=== PATIENT | male | born 1940 | race Caucasian/White ===

== ENCOUNTER 2021-06-20 13:52 | Outpatient (CLI) | payer MEDICARE, OTHER, SELFPAY ==
--- NOTE | ~2021-06-20 | XR_ITS ---
EXAMINATION: XR shoulder LT min 2V DATE: 06/20/2021 14:08 INDICATION: Left shoulder pain. TECHNIQUE: 4 views of left shoulder were obtained. COMPARISON: None. FINDINGS: Bone alignment is normal. No fracture. There is mild osteoarthritis of glenohumeral joint a nd acromioclavicular joint. There is a small calcification in the area of the rotator cuff. IMPRESSION: 1. Mild polyarticular osteoarthritis. 2. Mild calcific tendinitis of the rotator cuff. Reviewed, dictated and finalized at location A.
== END 2021-06-20 13:53 | disposition home or self-care (01) ==
PROVIDERS: PCP Family Medicine; Visit Provider Nurse Practitioner Family
DX: M19.012 Primary osteoarthritis, left shoulder (principal); M75.32 Calcific tendinitis of left shoulder
CPT/HCPCS: 73030

== ENCOUNTER → 2021-06-28 14:01 | Outpatient (CLI) | payer MEDICARE, OTHER, SELFPAY ==
--- NOTE | ~2021-06-28 | CT_ITS ---
EXAMINATION: CT brain wo con DATE: 06/28/2021 14:30 INDICATION: Headache. Head injury. TECHNIQUE: Computed tomography (CT) of the head was performed without intravenous contrast. The mA wa s adjusted according to patient size. Iterative reconstruction technique was employed. The dose-lengt h product was 674.51 mGy-cm. COMPARISON: Head CT 05/31/2017 FINDINGS: There are scattered areas of low attenuation in the cerebral white matter. There is no intr acranial hemorrhage, acute infarction, or abnormal intracranial mass lesion. The ventricles are obed l in size. There are likely changes of ocular lens replacement surgeries. The paranasal sinuses are c lear. The mastoid air cells are normal. IMPRESSION: 1. Stable moderate nonspecific cerebral white matter disease, which likely represents chronic small v essel ischemic disease. Reviewed, dictated and finalized at location A. IMPRESSION: 1. Stable moderate nonspecific cerebral white matter disease, which likely repr esents chronic small vessel ischemic disease.
== END ==
PROVIDERS: PCP Family Medicine; Visit Provider Nurse Practitioner Family
DX: S00.93XA Contusion of unspecified part of head, initial encounter (principal); R51.9 Headache, unspecified; R42 Dizziness and giddiness; X58.XXXA Exposure to other specified factors, initial encounter; R93.0 Abnormal findings on diagnostic imaging of skull and head, not elsewhere classified
CPT/HCPCS: 70450

== ENCOUNTER 2021-12-24 12:34 | Outpatient (CLI) | payer MEDICARE, OTHER, SELFPAY ==
--- NOTE | 2021-12-24 12:41 | ECHO_ITS ---
Patient Info Name: Matt Tavera Age: 81 years : 1940 Gender: Male Ht: 69 in Wt: 207 lbs BSA: 2.16 m2 HR: 93 bpm BP: 155 / 87 mmHg Technical Quality: Fair Exam Date: 12/24/2021 1:04 PM Exam Location: [facility] Pulmonary Patient Status: Outpatient Admit Date: 12/24/2021 Staff Ordering Physician: Alec Renteria DO Mill Dresser: Gena Flores RDCS Attending Provider: Alec Renteria DO Referring Physician: Dexter TELLO; Exam Type: CA echo doppler color flow Study Info Indications R07.89 - Other chest pain Complete two-dimensional, color flow and Doppler transthoracic echocardiogram is performed. Summary 1. Complete two-dimensional, color flow and Doppler transthoracic echocardiogram is performed. 2. Left ventricular chamber dimension is normal. 3. Left ventricular systolic function is normal, estimated at 60-65%. 4. The left ventricular diastolic function is grade I diastolic dysfunction. 5. E/e' 10 is mildly elevated. 6. No pulmonary hypertension, estimated pulmonary arterial systolic pressure is 32 mmHg. Left Ventricle E/e' 10 is mildly elevated. Left ventricular chamber dimension is normal. Left ventricular systolic function is normal, estimated at 60-65%. The left ventricular diastolic function is grade I diastolic dysfunction. Right Ventricle Right ventricular systolic function is normal and with normal TAPSE 2.2 cm. Right ventricular chamber dimension is normal. Left Atria Left atrial chamber dimension is normal. Right Atria Right atrial chamber dimension is normal. Aortic Valve The aortic valve is trileaflet. There is no aortic valve stenosis. There is no aortic valve regurgitation. Pulmonic Valve There is no pulmonic regurgitation. Mitral Valve There is no mitral valve stenosis. There is no mitral valve regurgitation. Tricuspid Valve There is no tricuspid valve regurgitation. No pulmonary hypertension, estimated pulmonary arterial systolic pressure is 32 mmHg. Pericardium/Pleural There is no pericardial effusion. Inferior Vena Cava Normal inferior vena cava with >50% collapse upon inspiration consistent with normal right atrial pressure, 5 mmHg. Aorta The aortic root size at the sinus of Valsalva is normal. Left Ventricular Outflow Tract Name Value Normal LVOT 2D LVOT Diameter 2.1 cm LVOT Doppler LVOT Peak Gradient 5 mmHg LVOT Mean Gradient 3 mmHg LVOT VTI 23 cm LVOT VTI/AV VTI Ratio 0.9 LVOT Stroke Volume 76 ml LVOT CO 16.6 l/min LVOT CI 7.7 l/min/m2 Pulmonic Valve Name Value Normal PV Doppler PV Peak Gradient 3 mmHg Mitral Valve
== END 2021-12-24 12:35 | disposition home or self-care (01) ==
LOC: ANHCARD 12:36
PROVIDERS: PCP Family Medicine; Visit Provider Internal Medicine Cardiovascular Disease
DX: R07.9 Chest pain, unspecified (principal)
CPT/HCPCS: 93306

== ENCOUNTER 2021-12-30 12:43 | Outpatient (CLI) | payer MEDICARE, OTHER, SELFPAY ==
--- NOTE | ~2021-12-30 | US_ITS ---
EXAMINATION: US carotid duplex BI DATE: 12/30/2021 13:40 INDICATION: Carotid occlusions TECHNIQUE: Grayscale, color Doppler, and pulsed Doppler images of the cervical carotid arteries were obtained. The degree of vessel stenosis is placed in one of the following categories: normal, <50%, 5 0-69%, >=70% but less than near-occlusion, near-occlusion, or total occlusion. Note that percent sten osis relative to normal distal artery lumen diameter is indirectly measured from velocity measurement s as described by Bradley, et al. Radiology 2003; 229:340-346. Notes: Normal: Peak systolic velocity <125 centimeters/sec and no plaque <50%. Peak systolic velocity <125 ( EDV <40; ICA/CCA PSV ratio <2.0; used these factors only a tandem lesions or low cardiac output or co ntralateral disease) 50-69 %: PSV 125-230 (EDV 40-100; ratio 2-4) >= 70% but less than near occlusion: PSV greater than 230 (EDV > 100; ratio> 4.0) Near Occlusion: PSV that is variable; markedly narrowed lumen Occlusion: Absent flow on color/spectral Doppler and no lumen on smith scale. COMPARISON: Ultrasound dated 06/07/2017. FINDINGS: RIGHT: The right common carotid artery (CCA) peak systolic velocity (PSV) is 90 cm/s. The right internal car otid artery (ICA) PSV is 161 cm/s. The right ICA end-diastolic velocity (EDV) is 28 cm/s. The right I CA/CCA PSV ratio is 1.8. The external carotid artery (ECA) PSV is 29 cm/s. There is antegrade flow in the right vertebral artery. LEFT: The left CCA PSV is 110 cm/s. The left ICA PSV is 198 cm/s. The left ICA EDV is 43 cm/s. The left ICA /CCA PSV ratio is 1.8. The ECA PSV is 123 cm/s. There is antegrade flow in the left vertebral artery . IMPRESSION: 1. 50-69% stenosis in the right internal carotid artery by sonographic criteria. 2. 50-69% stenosis in the left internal carotid artery by sonographic criteria. Reviewed, dictated and finalized at location A. IMPRESSION: 1. 50-69% stenosis in the right internal carotid artery by sonographic criteria . 2. 50-69% stenosis in the left internal carotid artery by sonographic criteria.
[2021-12-30 14:32] LABS: CRP 1.2 mg/dL (<1.0)
[2021-12-30 15:02] LABS: Erythrocyte Sedimentation Rate 42 mm/hr (0-20)
== END 2021-12-30 12:44 | disposition home or self-care (01) ==
PROVIDERS: PCP Family Medicine; Visit Provider Internal Medicine Cardiovascular Disease
DX: G44.309 Post-traumatic headache, unspecified, not intractable (principal); S09.90XS Unspecified injury of head, sequela; I65.23 Occlusion and stenosis of bilateral carotid arteries; X58.XXXS Exposure to other specified factors, sequela
CPT/HCPCS: 36415; 85652; 86140; 93880

== ENCOUNTER 2022-01-26 13:49 | Outpatient (CLI) | payer MEDICARE, OTHER, SELFPAY ==
--- NOTE | ~2022-01-26 | MR_ITS ---
EXAMINATION: MR brain/brain stem wo/w con DATE: 01/26/2022 14:45 INDICATION: Headache. TECHNIQUE: Magnetic resonance imaging (MRI) of the brain and brainstem was performed without and with 18 mL MultiHance intravenous contrast. COMPARISON: Brain MRI 04/04/2005 FINDINGS: There are scattered areas of nonspecific increased T2-weighted signal intensity in the cere bral white matter. Again seen is increased T2-weighted signal intensity in right middle cerebellar pe duncle. There is no acute ischemic infarct or intracranial hemorrhage. The ventricles are normal in s ize. There are likely changes of ocular lens replacement surgeries. The paranasal sinuses are clear. The mastoid air cells are normal. IMPRESSION: 1. Worsened moderate nonspecific cerebral white matter disease and stable disease of the right middle cerebellar peduncle, which likely represents chronic small vessel ischemic disease. Reviewed, dictated and finalized at location A. TECHNICIAN IMPRESSION: 1. Worsened moderate nonspecific cerebral white matter disease and stable disea se of the right middle cerebellar peduncle, which likely represents chronic sma ll vessel ischemic disease.
--- NOTE | ~2022-01-26 | MR_ITS ---
EXAMINATION: MRA brain wo con DATE: 01/26/2022 14:45 INDICATION: Headache. TECHNIQUE: Magnetic resonance angiography (MRA) of the brain was performed without intravenous contra st with T1-weighted SPGR by the 3D [id number] technique. Maximum intensity projection 3D-reconstr uctions were obtained. COMPARISON: Brain MRI 01/26/2022 FINDINGS: The vertebral arteries are codominant. There is no significant stenosis of basilar artery or the post erior cerebral arteries. There is no significant stenosis of the intracranial internal carotid arteri es or anterior or middle cerebral arteries. Anterior communicating artery is normal. The posterior co mmunicating arteries are normal. There is no aneurysm. IMPRESSION: 1. No aneurysm or significant intracranial arterial stenosis. Reviewed, dictated and finalized at location A. RD MAKER
== END 2022-01-26 13:50 | disposition home or self-care (01) ==
PROVIDERS: PCP Family Medicine
DX: I63.9 Cerebral infarction, unspecified (principal); R93.0 Abnormal findings on diagnostic imaging of skull and head, not elsewhere classified
CPT/HCPCS: 70544; 70553; A9577

== ENCOUNTER 2022-06-01 13:40 | Outpatient (CLI) | payer MEDICARE, OTHER, SELFPAY ==
--- NOTE | ~2022-06-01 | XR_ITS ---
XR chest 2V 06/01/2022 14:02 Indication: Dyspnea with exertion Procedure: 2 view chest Comparison: Comparison to multiple prior studies sequentially, with oldest reviewed study dated 07/2015. Findings: There are chronic linear infiltrates of the lower lungs bilaterally, slightly increased com pared with prior study. No significant effusion. No edema. No pneumothorax. No acute osseous abnormal ity. There is atherosclerosis of the aorta. Impression: 1: Progression of linear bibasilar infiltrates which most likely represents atelectasis/scarring. Reviewed, dictated and finalized at location A. Impression: 1: Progression of linear bibasilar infiltrates which most likely represents ate lectasis/scarring.
== END 2022-06-01 13:41 | disposition home or self-care (01) ==
PROVIDERS: PCP Family Medicine; Visit Provider Nurse Practitioner Family
DX: R06.09 Other forms of dyspnea (principal)
CPT/HCPCS: 71046

== ENCOUNTER 2022-08-14 12:34 | Emergency (ER) | payer MEDICARE, OTHER, SELFPAY ==
--- NOTE | 2022-08-14 12:41 | ED.EXTPRO ---
HPI - Extremity Problem General Chief complaint: Extremity Problem,Nontraumatic Stated complaint: L LEG PAIN/SWELLING Source: patient and RN notes reviewed History of Present Illness HPI Narrative: 82 yo M presents to urgent care with complaints of left calf pain and swelling that started Sunday. Pt states the pain is now extending to his posterior thigh. Pt states this felt like a rubber band snapped him in the calf when he was lying in bed on Sunday. Denies any injury. Denies any fevers, chills, chest pain, or SOB. Related Data Home Medications Medication Instructions Recorded Confirmed aspirin 81 mg tablet,delayed 81 mg PO DAILY 07/16/19 08/14/22 release (Aspir-) cholecalciferol (vitamin D3) 50 50 mcg PO DAILY 12/09/21 08/14/22 mcg (2,000 unit) capsule multivitamin (Daily Multi-Vitamin 1 tablet PO DAILY 12/09/21 08/14/22 tablet) cephalexin 500 mg capsule 500 mg PO DIRECTED 08/14/22 08/14/22 Allergies Allergy/AdvReac Type Severity Reaction Status Date / Time No Known Allergies Allergy Verified 08/14/22 13:02 Review of Systems Review of Systems: Pertinent positives and pertinent negatives per HPI. [facility] Past Medical History Medical History Bilateral carotid artery stenosis Chronic obstructive pulmonary disease CKD (chronic kidney disease) GERD (gastroesophageal reflux disease) Headaches due to old head injury History of basal cell carcinoma (BCC) History of prostate cancer HLD (hyperlipidemia) HTN (hypertension) IFG (impaired fasting glucose) Insomnia RLS (restless legs syndrome) Family History Family History Father Family history of lung cancer Other Hypertension Malignant neoplasm of prostate Social History Social History Smoking packs per day: 1.5 Smoking cigarettes per day: 30.0 Years smoked: 50 Smoking pack-years: 75.00 Smoking status: Former smoker Tobacco type: cigarettes Second hand tobacco smoke exposure: No Smoking end date: 03/19/10 Alcohol intake: never Substance use: never Substance use type: does not use Living arrangements: with family Occupation/Education: retired Gender identity (if verbalized by the patient): Male Sexual Orientation (if Verbalized by the Patient): Straight or Heterosexual Comments At the time of my signature, I reviewed and agree with the nursing past medical, surgical, social, and family history. There is no relevant family history pertinent to the patient complaint. Exam Narrative: GENERAL: This is a well-nourished, well-developed patient, in no apparent distress. HEAD: normocephalic, atraumatic. EYES: Sclera clear/white. Vision is grossly intact. EARS: External ears normal, auditory canals clear and without drainage. Hearing grossly intact. NOSE: External nose normal with no obvious nasal discharge, nares without redness, no rhinorrhea. THROAT: Mucous membranes moist, posterior pharynx clear. NECK: Neck supple, non-tender without lymphadenopathy, masses or thyromegaly. CARDIOVASCULAR: Regular rate and rhythm without murmurs, gallops, or rubs. RESPIRATORY: Clear to auscultation. Breath sounds equal bilaterally. No wheezes, rales, or rhonchi. SKIN: warm, intact with no suspicious lesions or rash, good texture and turgor. NEURO: awake, alert, and oriented to person, place and time. There were no obvious focal neurologic abnormalities. EXTREMITIES: Left posterior calf swelling and tenderness that extends to posterior upper thigh. BACK: Nontender without deformity or crepitus. No flank tenderness. Course Course Level of Care: Express Care Visit Vital Signs Vital signs: Vital Signs Temperature 98.1 F 08/14/22 12:45 Pulse Rate 95 08/14/22 12:45 Respiratory Rate 16 08/14/22 12:45 Blood Pressure 116/78 08/14/22 12:45 Puls
[2022-08-14 12:45] VITALS: BP 116/78; PULSE 95; RESP 16; TEMP 36.7; O2SAT 96
--- NOTE | 2022-08-14 13:21 | PC.NURSE ---
1255- exchange called and requested a call back from Dr Jamshid Finn. 1305- 2nd call to exchange 1321- LESTER Mccloud talking to Dr Finn at present.
== END 2022-08-14 13:27 | disposition home or self-care (01) ==
PROVIDERS: Emergency Provider Nurse Practitioner Family; PCP Family Medicine
DX: R22.42 Localized swelling, mass and lump, left lower limb (principal); Z87.891 Personal history of nicotine dependence; I65.23 Occlusion and stenosis of bilateral carotid arteries; I12.9 Hypertensive chronic kidney disease with stage 1 through stage 4 chronic kidney disease, or unspecified chronic kidney disease; N18.9 Chronic kidney disease, unspecified; J44.9 Chronic obstructive pulmonary disease, unspecified; E78.5 Hyperlipidemia, unspecified; R73.01 Impaired fasting glucose; G25.81 Restless legs syndrome; K21.9 Gastro-esophageal reflux disease without esophagitis; Z85.828 Personal history of other malignant neoplasm of skin; Z85.46 Personal history of malignant neoplasm of prostate
CPT/HCPCS: 99213; G0463

== ENCOUNTER 2022-08-15 13:36 | Outpatient (CLI) | payer MEDICARE, SELFPAY ==
--- NOTE | ~2022-08-15 | US_ITS ---
EXAMINATION: US venous doppler [facility] DATE: 08/15/2022 14:13 INDICATION: Left lower limb swelling and pain. TECHNIQUE: Grayscale ultrasound images without and with compression and Doppler ultrasound images of the left lower extremity veins were obtained. COMPARISON: None. FINDINGS: The visualized portions of left common femoral vein, profunda (deep) femoral vein, femoral vein, popl iteal vein, peroneal veins, posterior tibial veins, and greater saphenous vein outflow are patent. Th ere is a 2.5 x 4.1 x 0.9 cm intramuscular hematoma in medial calf. IMPRESSION: 1. No deep venous thrombosis. 2. Intramuscular hematoma in medial calf. Reviewed, dictated and finalized at location L.
== END 2022-08-15 13:37 | disposition home or self-care (01) ==
PROVIDERS: PCP Family Medicine; Visit Provider Family Medicine
DX: M79.89 Other specified soft tissue disorders (principal)
CPT/HCPCS: 93971

== ENCOUNTER 2022-09-26 12:48 | Outpatient (CLI) | payer MEDICARE, OTHER, SELFPAY ==
--- NOTE | 2022-09-28 14:52 | WPDSIXMINUTE ---
Six Minute Walk Procedure Procedure Performed Pulmonary Stress Test (6 min walk) Six Minute Walk Six Minute Walk: DATE OF SERVICE: 09/26/2022 REQUESTING: Leodan South APRN REASON FOR TESTING: dyspnea on exertion SIX MINUTE WALK This test was conducted per ATS guidelines. The initial saturation was 96%, and initial heart rate was 76 beats per minute. The patient walked without stopping, completing 1100 ft/ 335.2 meters. The saturation at the end of testing was 95%, and the heart rate was 110 beats per minute. The dyspnea score at the beginning of the study was 1, at the end of the study was 3-4. IMPRESSION: This is a normal study. The patient did not require supplemental oxygen with exertion. Distance walked is adequate for age, 82 years old. Bhumika Correia MD
--- NOTE | 2022-09-28 14:55 | WPDPFTINT ---
PFT Procedure Performed PFT Procedure Performed Spirometry with Pre/Post Bronchodilator Plethysmography (Lung Vol) Diffusing Cap (DLCO) Flow Vol Loop PFT Interpretation DOS: 09/26/2022 REQUESTING: Leodan South APRN REASON FOR TESTING: COPD PULMONARY FUNCTION TESTS Results are reliable and reproducible. Spirometry: pre bronchodilator FEV1 is 2.37 L, 87% predicted, normal. Pre bronchodilator FVC is 3.50 L, 95%, normal. FEV1/FVC is 68%, normal. After bronchodilator there is a 12% increase in FEV1, 2.66 L, 98% predicted. This is statistically significant. After bronchodilator there is a 2% increase in the FVC, 3.58 L, 97%, not a significant increase. The post bronchodilator FEV1/FVC is 74%, normal. Lung volumes: Total lung capacity is 6.30 L, 92% predicted, normal. Residual volume is 2.65 L, 101% predicted, normal. RV/TLC is 42%, in the normal range. Diffusion: DLCO Is 15.9, 69%, lower end of normal. DLCO /VA is 2.81, 78%, normal. Flow volume loop: Unremarkable IMPRESSION: Normal spirometry, normal lung volumes, normal diffusion. There is a significant response to bronchodilator. Compared to a prior study on 04/06/2017, values are similar for spirometry, prior mild hyperinflation and air trapping are now gone, and diffusion was similar.. FEV1 was 2.6 L, 98%, now is 2.37 L, 87%, the FEV1/FVC was 71% and now 68%. No significant difference. On the prior study total lung capacity was elevated consistent with hyperinflation, TLC was 8.39 L, 136%, now in the normal range 92%. Air trapping was present, RV was 4.74 L, 184%, air trapping has resolved. DLCO was similar, 16.8, 80% and now 15.9, 69%. DLCO/ VA similar 3.18 L now 2.81, not significantly different. Bhumika Correia MD
== END 2022-09-26 12:49 | disposition home or self-care (01) ==
LOC: ANHPFT 12:48
PROVIDERS: PCP Family Medicine; Visit Provider Nurse Practitioner Family
DX: R06.09 Other forms of dyspnea (principal)
CPT/HCPCS: 94060; 94618; 94726; 94729

== ENCOUNTER 2022-11-27 12:06 | Outpatient (CLI) | payer MEDICARE, OTHER, SELFPAY ==
--- NOTE | ~2022-11-27 | PE_ITS ---
EXAMINATION: PET_PETPSMAST_PT DATE: 11/27/2022 14:42 INDICATION: Prostate cancer. Rising PSA. TECHNIQUE: 8.886 mCi of piflufolastat F-18 was administered intravenously. Low dose computed tomograp hy (CT) images were acquired from the base of the brain to the proximal thighs for attenuation correc tion and anatomic localization. Automated exposure control was employed. Dose-length product (DLP) wa s 851 mGy-cm. Positron emission tomography (PET) images were acquired in the same distribution. COMPARISON: Chest CT 08/24/2014, CT abdomen and pelvis 10/24/2012 FINDINGS: Head/neck: There are no pathologically enlarged lymph nodes. Chest: The lungs demonstrate mild atelectasis. Calcified right lung nodules and calcified right hilar lymph nodes are consistent with old granulomatous disease. No pleural effusion. The heart size is no rmal. There are coronary artery calcifications. No pericardial effusion. Abdomen/pelvis/proximal thighs: Calcifications in the liver and spleen are consistent with old granul omatous disease. The gallbladder, pancreas, adrenal glands, and kidneys are normal. There is calcifie d atherosclerosis of the aorta and many of the other arteries. There are no dilated loops of bowel. T here is diverticulosis of the colon without evidence of diverticulitis. The appendix is normal. There are no pathologically enlarged lymph nodes. There is a left inguinal hernia containing fat. The pros avelar is normal in size. There is increased activity in the prostate on the right with maximum SUV of 5.3. There are no pathologically enlarged lymph nodes. There is an 8 x 8 mm right common iliac node w ith maximum SUV of 22.5. There is no osseous metastatic disease. IMPRESSION: 1. Increased activity in the prostate on the right, consistent with primary malignancy. 2. Normal-sized right common iliac node without increased activity, consistent with metastatic diseas e. Reviewed, dictated and finalized at location A. IMPRESSION: 1. Increased activity in the prostate on the right, consistent with primary mal ignancy. 2. Normal-sized right common iliac node without increased activity, consistent with metastatic disease.
== END 2022-11-27 12:07 | disposition home or self-care (01) ==
PROVIDERS: PCP Family Medicine; Visit Provider Nurse Practitioner Adult Health
DX: R97.21 Rising PSA following treatment for malignant neoplasm of prostate (principal)
CPT/HCPCS: 78815; A9595

== ENCOUNTER 2023-07-12 16:01 | Outpatient (CLI) | payer MEDICARE, OTHER, SELFPAY ==
--- NOTE | ~2023-07-12 | US_ITS ---
EXAMINATION: US carotid duplex BI DATE: 07/12/2023 16:46 INDICATION: Carotid stenosis. TECHNIQUE: Grayscale, color Doppler, and pulsed Doppler images of the cervical carotid arteries were obtained. The degree of vessel stenosis is placed in one of the following categories: normal, <50%, 5 0-69%, >=70% but less than near-occlusion, near-occlusion, or total occlusion. Note that percent sten osis relative to normal distal artery lumen diameter is indirectly measured from velocity measurement s as described by Bradley, et al. Radiology 2003; 229:340-346. Notes: Normal: Peak systolic velocity <125 centimeters/sec and no plaque <50%. Peak systolic velocity <125 ( EDV <40; ICA/CCA PSV ratio <2.0; used these factors only a tandem lesions or low cardiac output or co ntralateral disease) 50-69 %: PSV 125-230 (EDV 40-100; ratio 2-4) >= 70% but less than near occlusion: PSV greater than 230 (EDV > 100; ratio> 4.0) Near Occlusion: PSV that is variable; markedly narrowed lumen Occlusion: Absent flow on color/spectral Doppler and no lumen on smith scale. COMPARISON: Ultrasound dated 12/30/2021. FINDINGS: RIGHT: The right common carotid artery (CCA) peak systolic velocity (PSV) is 85 cm/s. The right internal car otid artery (ICA) PSV is 167 cm/s. The right ICA end-diastolic velocity (EDV) is 38 cm/s. The right I CA/CCA PSV ratio is 2. The external carotid artery (ECA) PSV is 161 cm/s. There is antegrade flow in the right vertebral artery. LEFT: The left CCA PSV is 87 cm/s. The left ICA PSV is 175 cm/s. The left ICA EDV is 41 cm/s. The left ICA/ CCA PSV ratio is 2. The ECA PSV is 95 cm/s. There is antegrade flow in the left vertebral artery. IMPRESSION: 1. 60-79% stenosis in the right internal carotid artery by sonographic criteria. 2. 60-79% stenosis in the left internal carotid artery by sonographic criteria. Reviewed, dictated and finalized at location B. IMPRESSION: 1. 60-79% stenosis in the right internal carotid artery by sonographic criteria . 2. 60-79% stenosis in the left internal carotid artery by sonographic criteria.
== END 2023-07-12 16:02 | disposition home or self-care (01) ==
LOC: ANHIMG 16:01
PROVIDERS: PCP Family Medicine; Visit Provider Internal Medicine Cardiovascular Disease
DX: I65.23 Occlusion and stenosis of bilateral carotid arteries (principal)
CPT/HCPCS: 93880

== ENCOUNTER 2024-06-11 14:55 | Outpatient (CLI) | payer MEDICARE, OTHER, SELFPAY ==
--- NOTE | 2024-06-11 15:05 | ECG_ITS ---
Test Date: 2024-06-11 15:22:23 Measurements Intervals [place] Rate: 91 P: 41 [place]: 195 QRS: -70 QRSD: 154 T: 53 QT: 434 QTc: 535 Interpretive Statements SINUS RHYTHM WITH FREQUENT ECTOPIC PREMATURE COMPLEXES RIGHT BUNDLE BRANCH BLOCK [120+ ms QRS DURATION, UPRIGHT V1, 40+ ms S IN I/aVL/V4/V5/V6] LEFT ANTERIOR FASCICULAR BLOCK [QRS AXIS <= -45, QR IN I, RS IN II] POSSIBLE SEPTAL MYOCARDIAL INFARCTION , PROBABLY OLD [30 ms Q WAVE IN V1/V2] No previous ECG available for comparison Electronically Signed On 06-12-2024 10:45:46 CDT by Hero Lang M.D.
--- OUTSIDE RECORDS SUMMARY | 2024-06-11 16:18 | XMS_ITS | Continuity of Care Document ---
Author Organization [facility] Address [address] [facility] [address] [place] [address] Phone Care Team Providers Care Executive Community Planning Name Role Phone Anish Desouza Unavailable Unavailable Procedures Procedure Date Office/outpatient Visit, Est No Script Eye Exam & Treatment Refraction Eye Exam & Treatment Refraction Eye Exam & Treatment Visual Functional Status Assessed Refraction Advance Directives Directive Yes / No Effective Date File Name No Information Encounters Encounter Description Practice Location Reason(s) For Visit Diagnoses Date Provider Providers Copied on Encounter Office/outpat ient Visit, Est [facility], [address] [place] [address] [address], [place], [place], [id number], [place] tel:[phone] SEC [facility] No Information 200 9 Deo Anish. [address] [facility] [address] [facility], [place], [address], [place]. tel:[phone] [facility], [address], [place], [place], [address], [place] tel:[phone] SEC [facility] No Information 5-200 9 Nayeli Guzman. [address], [place], [address], [place]. tel:[phone] [facility], [address] [place] [address] [address], [place], [place], [id number], [place] tel:[phone] SEC [facility] No Information Sep-0 9-200 8 Nayeli Gagen. [address] [facility] , [address], [place], [place], [facility], . tel:[phone] [facility] Eye [facility], [address], [place], [place], [id number], tel:[phone] SEC [facility] No Information Aug-0 7-200 7 Nayeli Guzman. [address] [facility] , [address], [place], [place], [facility], [place]. tel:[phone] Family History Family Member Type Diagnosis Age At Onset No Information Payers Payer name Insurance type Covered alliance party ID Authoriza tion(s) [place] [id number] For Life Mdcr Supp CI [id number] Social History Type Description Quantity Date Captured Comments Sex Male Smoking Status No Information Chief Complaint And Reason For Visit No Information Reason For Referral Reason For Referral No Information History Of Present Illness Encounter Date Complaint History Of Prese nt Illness No Information Functional Status Date Functional Assessmen t No Information Instructions Date Instruction Additional Infor mation No Information Assessments Type Assessment Date No Information Patient Care Teams Name Effective Dates (start - stop) Status Members No Information
--- OUTSIDE RECORDS SUMMARY | 2024-06-11 16:18 | XMS_ITS | Clinical Summary ---
Author Organization [facility] Address [address] [place] [address] Care Team Providers Care Psychiatric Technician Assistant Name Role Phone Niki Robins VISUAL AND STOCK ASSOCIATE Primary Care Provider [phone] Allergies No known active allergies Medications mupirocin (BACTROBAN) 2 % ointment Apply topically 3 (three) times daily. Active IRON containing peds multivitamin (POLY--JUANY/IRON ) 11 MG/ML solution Take 1 mL by mouth daily. Active gabapentin (NEURONTIN) 400 MG capsule Take 400 mg by mouth nightly. Active esomeprazole (NEXIUM) 40 MG capsule Take 40 mg by mouth every morning before breakfast. Active Cholecalciferol 50 MCG (1999 UT) Tab Active psyllium (METAMUCIL) 0.52 g capsule Take 0.4 mg by mouth 2 (two) times daily. Active aspirin EC (ECOTRIN) 81 MG tablet Take 81 mg by mouth daily. Active albuterol sulfate HFA 108 (90 Base) MCG/ACT inhaler Inhale 1 puff into the lungs every 4 (four) hours as needed for Wheezing. Active tamsulosin (FLOMAX) 0.4 MG Cap Take 0.4 mg by mouth daily. Active hydroCHLOROthiazi de (MICROZIDE) 12.5 MG capsule Take 12.5 mg by mouth every morning. Active cetirizine (ZYRTEC) 10 MG tablet Take 10 mg by mouth daily. Active meclizine (ANTIVERT) 25 MG tablet Take 25 mg by mouth 3 (three) times daily as needed. Active amitriptyline (ELAVIL) 50 MG tablet Take 50 mg by mouth nightly at bedtime. Active simvastatin (ZOCOR) 40 MG tablet Take 40 mg by mouth nightly at bedtime. Active zolpidem (AMBIEN) 10 MG tablet Take 10 mg by mouth nightly as needed for Sleep. Active lisinopril (PRINIVIL) 20 MG tablet Take 20 mg by mouth daily. Active ALPRAZolam (XANAX) 0.25 MG tablet Take 0.25 mg by mouth nightly as needed for Sleep. Active Ivermectin 1 % Cream Active Active Problems Problem Noted Date Diagnosed Date Bilateral carotid artery stenosis 02/01/2022 Encounters Date Type Department Care Team Description 06/03/2024 12:18 PM CDT - 06/03/2024 11:59 PM CDT Hospital Encounter [facility] Ultrasound [address] [place] [address] Bebeto Rosenthal MD Barnett, Jason, MD Discharge Disposition: Home or Self Care (Routine Discharge) 06/03/2024 Travel 04/16/2024 11:30 AM LINUX SOLARIS ADMINISTRATOR [facility] [address] [place] [address] Bebeto Rosenthal MD Carotid Stenosis 04/16/2024 Orders Only [facility], [address] [address] Bebeto Rosenthal MD from Last 3 Months Family History Medical History Relation Comments Lung Cancer Father Thyroid Disease Mother Relation Status Comments Father Mother Social History Tobacco Use Types Packs/Day Years Used Date Smoking Tobacco: Former Smokeless Tobacco: Former Tobacco Cessation:Counseling Given: No Alcohol Use Standard Drinks/Week Comments Yes 1 (1 standard drink = 0.6 oz pur e alcohol) occasionally PHQ-2 Answer Date Recorded PHQ-2 Score - If the patient scores above 3, please move on to questions 3-9 0 02/16/2022 Sex and Gender Information Value Date Recorded Sex Assigned at Not on file Legal Sex Male 12:01 PM CDT Gender Identity Not on file Sexual Orientation Not on file Last Filed Vital Signs Vital Sign Reading Time Taken Comments Blood Pressure 128/70 04/16/2024 11:39 AM LINUX SOLARIS ADMINISTRATOR Pulse 92 04/16/2024 11:39 AM LINUX SOLARIS ADMINISTRATOR Temperature 36.8 C (98.2 F) 12/22/2021 2:04 PM CDT Respiratory Rate 18 12/22/2021 2:04 PM CDT Oxygen Saturation 97% 02/16/2022 10:49 AM LINUX SOLARIS ADMINISTRATOR Inhaled Oxygen Concentration - - Weight 98.9 kg (218 lb) 04/16/2024 11:39 AM LINUX SOLARIS ADMINISTRATOR Height 175.3 cm (5' 9 ) 04/16/2024 11:39 AM LINUX SOLARIS ADMINISTRATOR Body Mass Index 32.19 04/16/2024 11:39 AM LINUX SOLARIS ADMINISTRATOR Plan of Treatment Health Maintenance Due Date Last Done Comments DTaP, Tdap and Td Vaccines (1 - Tdap) 1959 Zoster Vaccines (1 of 2) 1990 Annual Medicare Wellness Visit 2005 Pneumococcal Vaccine: 65+ Years (1 of 1 - PCV) 2005 RSV Immunization or 60+ Years (1 - 1-dose 75+ series) 2015 COVID-19 Vaccine ( - season) 2023 08/11/2021, 02/17/2021, 06/08/2020, Additional history exists Influenza Adult (#1) 2023 11/25/2019, 12/24/2018, 11/29/2017, Additional history exists PHQ-2 (Physician [place]) 03/19/2024 Meningococcal B Vaccine Aged Out No l onger eligible based on patient's age to complete this topic Meningococcal Vaccine Aged Out No laura mikhail eligible based on patient's age to complete this topic RSV Immunizations Under 20 Months Aged Out No longer eligible based on patient's age to complete this topic Procedures Procedure Name Priority Date/Time Associated Diagnosis Comments USV CAROTID DUPLEX CONNIE Routine 06/03/2024 1:21 PM CDT Carotid stenosis, bilateral from Last 3 Months Results * USV CAROTID DUPLEX CONNIE (06/03/2024 1:21 PM CDT) Anatomical Region Laterality Modality Neck Ultrasound 06/03/2024 5:16 PM CDT Impressions 06/03/2024 5:22 PM CDT IMPRESSION: 1. Bilateral advanced calcified shadowing plaque. Difficult to exclude hemodynamically significant stenosis in the left internal carotid artery. 2. Follow-up with CTA of the neck vasculature. Ordered By: BEBETO ROSENTHAL Interpreted By: Jean-Pierre Amado, 06/03/2024 5:16 PM Narrative 06/03/2024 5:22 PM CDT [facility] [address] [place] [address] IMAGING STUDIES:USV CAROTID DUPLEX CONNIE DATE: 06/03/2024 12:40 PM INDICATION: eval carotid stenosis . COMPARISON: No comparisons. . TECHNIQUE: Examination performed by mechanical design drafter using grayscale with color flow and spectral Doppler. Selected images submitted for interpretation. Worksheet completed. FINDINGS: RIGHT CAROTID BIFURCATION: Peak systolic velocities (cm/s) CCA 182, ICA 230, ECA 196, ICA/CCA 2.7. Advanced calcified shadowing plaque. There is no evidence to suggest the presence of a hemodynamically significant stenosis within the proximal right internal carotid artery or carotid bulb. Approximately 50% stenosis of the proximal internal carotid artery.. LEFT CAROTID BIFURCATION: Peak systolic velocities (cm/s) CCA 111, ICA 230, ECA 106, ICA/CCA 2.6. Advanced calcified shadowing plaque.Spectral broadening in the internal carotid artery. Difficult to exclude hemodynamically significant stenosis.. . Follow-up with CTA. VERTEBRAL ARTERIES: Antegrade flow present in both vertebral arteries. Stenoses evaluated using criteria similar to NASCET. Procedure Note Ethan Amado MD - 06/03/2024 [facility] [address] [address] IMAGING STUDIES:USV CAROTID DUPLEX BILDATE: 06/03/2024 12:40 PM INDICATION: eval carotid stenosis . COMPARISON: No comparisons. . TECHNIQUE: Examination performed by mechanical design drafter using grayscale withcolor flow and spectral Doppler. Selected images submitted forinterpretation. Worksheet completed. FINDINGS: RIGHT CAROTID BIFURCATION: Peak systolic velocities (cm/s) CCA 182, ICA 230, ECA 196, ICA/CCA2.7. Advanced calcified shadowing plaque. There is no evidence to suggest the presence of a hemodynamicallysignificant stenosis within the proximal right internal carotid artery orcarotid bulb. Approximately 50% stenosis of the proximal internal carotidartery.. LEFT CAROTID BIFURCATION: Peak systolic velocities (cm/s) CCA 111, ICA 230, ECA 106, ICA/CCA2.6. Advanced calcified shadowing plaque.Spectral broadening in the internalcarotid artery. Difficult to exclude hemodynamically significant stenosis.. . Follow-up with CTA. VERTEBRAL ARTERIES: Antegrade flow present in both vertebral arteries. Stenoses evaluated using criteria similar to NASCET. IMPRESSION: 1. Bilateral advanced calcified shadowing plaque. Difficult to excludehemodynamically significant stenosis in the left internal carotidartery. 2. Follow-up with CTA of the neck vasculature. Ordered By: BEBETO ROSENTHAL Interpreted By: Jean-Pierre Amado, 06/03/2024 5:16 PM Bebeto Rosenthal MD VAS Final Result from Last 3 Months Insurance MEDICARE [facility] [employer] Care Teams Psychiatric Technician Assistant Relationship Specialty Start Date End Date Niki Robins FNP PCP - General Nurse Practitioner Family 12/22/21
== END 2024-06-11 14:56 | disposition home or self-care (01) ==
PROVIDERS: PCP Family Medicine; Visit Provider Nurse Practitioner Family
DX: I45.10 Unspecified right bundle-branch block (principal); I44.4 Left anterior fascicular block
CPT/HCPCS: 93005

== ENCOUNTER 2024-08-14 15:21 | Outpatient (CLI) | payer MEDICARE, OTHER, SELFPAY ==
--- NOTE | ~2024-08-14 | XR_ITS ---
Right Shoulder Technique: AP and scapular Y views were obtained. Clinical History: Pain Findings: No fracture or dislocation is seen. Osseous alignment is anatomic. The glenohumeral and acr omioclavicular joint spaces are preserved. Soft tissues are unremarkable. Impression: Unremarkable right shoulder radiographs. Reviewed, dictated and finalized at [facility]. Impression: Unremarkable right shoulder radiographs.
[2024-08-14 15:54] LABS: Alanine Aminotransferase 18 U/L (6-50); Albumin Level 4.1 g/dL (3.5-5.1); Alkaline Phosphatase 71 U/L (38-126); Anion Gap 4 mmol/L (4-12); Aspartate Amino Transferase 26 U/L (17-59); Bilirubin,Total 0.9 mg/dL (0.2-1.3); Blood Urea Nitrogen 23 mg/dL (9-20); Calcium 9.6 mg/dL (8.4-10.2); Carbon Dioxide 31 mmol/L (22-30); Chloride 101 mmol/L (98-107); Estimated Glomerular Filt Rate > 60; Glucose 92 mg/dL (65-110); Potassium 3.9 mmol/L (3.4-5.0); Sodium 136 mmol/L (137-145)
[2024-08-14 16:29] LABS: Hemoglobin A1C 5.9 % (<5.7)
== END 2024-08-14 15:22 | disposition home or self-care (01) ==
PROVIDERS: PCP Family Medicine; Visit Provider Physician Assistant
DX: M25.511 Pain in right shoulder (principal); R73.01 Impaired fasting glucose; I10 Essential (primary) hypertension
CPT/HCPCS: 36415; 73030; 80053; 83036

== ENCOUNTER 2024-10-08 17:24 | Emergency (ER) | payer MEDICARE, OTHER, SELFPAY ==
--- NOTE | ~2024-10-08 | CT_ITS ---
EXAMINATION: CT diagnostic chest wo con DATE: 10/08/2024 23:08 INDICATION: left anterior inferior lateral rib pain s/p fall TECHNIQUE: Computed tomography (CT) of the chest was performed without intravenous contrast. Addition al 3D reconstructions utilizing coronal maximum intensity projection (MIP) were performed. Automated exposure control and iterative reconstruction technique were employed. The dose-length product was 29 1.29 mGy-cm. COMPARISON: None FINDINGS: Mild paraseptal emphysema. Bibasilar atelectasis. A few scattered small calcified pulmonary nodules i n the right lung along with calcified right hilar and mediastinal lymph nodes and multiple small hepa tic and splenic calcifications, all consistent with old granulomatous disease. No pulmonary edema, pl eural effusion or pneumothorax. Heart size normal. Atherosclerotic coronary artery calcification. No pericardial effusion. Thoracic aorta is normal in caliber. No pathologically enlarged thoracic lympha denopathy. 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 Mild S-shaped curvature of the thoracic spine with moderate spondylosis. Chronic T7 compression fracture. Additional mild chronic likely physiologic anterior wedging at T12 and L1. Non displaced fractures of the anterior left eighth rib. IMPRESSION: 1. Nondisplaced anterior left eighth rib fracture. 2. Mild bibasilar atelectasis. No other acute cardiopulmonary disease. Reviewed, dictated and finalized at location A.
--- NOTE | ~2024-10-08 | CT_ITS ---
EXAMINATION: CT cervical spine wo con DATE: 10/08/2024 18:15 INDICATION: Fall TECHNIQUE: Computed tomography (CT) of the cervical spine was performed without intravenous contrast. Automated exposure control and iterative reconstruction technique were employed. The dose-length pro duct was 453.39 mGy-cm. COMPARISON: Radiographs dated 11/03/2009 FINDINGS: Mild reversal of the normal cervical lordosis. Vertebral body heights are normal. No fracture. Mild t o moderate osteoarthritis at the atlantoaxial articulation. And multilevel disc height loss, severe a t C5-C6 and C6-C7, moderate at C4-C5 and mild at the remaining cervical levels. Severe bilateral unco vertebral osteoarthritis at C4-C5 through C6-C7. Mild to moderate uncovertebral osteoarthritis the re maining cervical levels. There is also multilevel moderate to severe facet osteoarthritis throughout much of the cervical and visualized upper thoracic spine. Large disc bulge or potentially disc extrus ion at C3-C4 and posterior disc osteophyte complex at C4-C5 through C6-C7 instrumented mild multileve l central canal stenosis. The uncovertebral and facet osteoarthritis contributing to moderate bilater al neural foraminal stenosis at the left at C3-C4 and bilaterally at C4-C5 through C7-T1. Mild neural from stenosis at the remaining cervical and visualized upper thoracic levels. Prominent atherosclero tic calcification is at the bilateral carotid bulbs. Cervical soft tissues are otherwise unremarkable . Likely benign low-attenuation nodules at the inferior left and right thyroid lobes measuring up to 1.1 cm. Mild to moderate emphysema at the isthmus apices of the lungs. IMPRESSION: 1. Severe cervical spondylosis. No acute osseous abnormality. 2. Prominent atherosclerotic calcification at the bilateral carotid bulbs, potentially hemodynamicall y significant on the right. Reviewed, dictated and finalized at location A. IMPRESSION: 1. Severe cervical spondylosis. No acute osseous abnormality. 2. Prominent atherosclerotic calcification at the bilateral carotid bulbs, pote ntially hemodynamically significant on the right.
--- NOTE | ~2024-10-08 | XR_ITS ---
HISTORY: fall injury COMPARISON: 06/01/2022 TECHNIQUE: 3 views of the left ribs were performed along with a PA view of the chest FINDINGS: Calcified lymph nodes within the right hilum, consistent with prior granulomatous disease. The remainder of the cardiomediastinal silhouette is otherwise unremarkable. Bibasilar atelectasis is noted. The remainder of the lungs are clear. No acute displaced left-sided rib fracture is appreciated. Bone mineralization is age-appropriate. IMPRESSION: No acute displaced left-sided rib fracture, as detailed above. Bibasilar atelectasis. Reviewed, dictated and finalized at location A.
--- NOTE | ~2024-10-08 | CT_ITS ---
EXAMINATION: CT brain wo con DATE: 10/08/2024 18:15 INDICATION: Fall TECHNIQUE: Computed tomography (CT) of the head was performed without intravenous contrast. Sagittal and coronal reconstructions were performed. The mA was adjusted according to patient size. Iterative reconstruction technique was employed. The dose-length product was 681.00 mGy-cm. COMPARISON: head CT dated 06/28/2021 FINDINGS: No fracture. No acute intracranial hemorrhage, acute infarction or abnormal extra axial fluid collect ion. There is unchanged moderate scattered white matter hypoattenuation consistent with chronic small vessel ischemic disease. Symmetric prominence of the sulci consistent with mild age-appropriate diff use cerebral volume loss. No mass/mass effect. Intracranial calcified cerebral atherosclerosis is not ed. Changes of bilateral intraocular lens replacement. The orbits, paranasal sinuses and mastoid air cells are normal. IMPRESSION: 1. Age-related changes the brain with no fracture or acute intracranial process. Reviewed, dictated and finalized at location A. IMPRESSION: 1. Age-related changes the brain with no fracture or acute intracranial process .
[2024-10-08 17:24] VITALS: BP 144/64; PULSE 82; RESP 16; TEMP 36.8; O2SAT 99
--- OUTSIDE RECORDS SUMMARY | 2024-10-08 17:26 | XMS_ITS | Continuity of Care Document ---
Author Organization [facility] Address [address] [facility] [address] [place] [address] Phone Care Team Providers Care Drum Operator Name Role Phone Anish Desouza Unavailable Unavailable [...] Copied on Encounter Office/outpat ient Visit, Est [facility], [address] [place] [address] [address], [place], [place], [id number], [place] tel:[phone] SEC [facility] No Information 200 9 Deo Anish. [address] [facility] [address] [facility], [place], [address], [place]. tel:[phone] [facility], [address], [place], [place], [address], [place] tel:[phone] SEC [facility] No Information 5200 9 Nayeli Guzman. [address] , [address], [place], [address], [place]. tel:[phone] [facility], [address] [place] [address] [address], [place], [place], [address], [place] tel:[phone] SEC [facility] No Information Sep-0 9-200 8 Nayeli Gagen. [address] [facility] , [address], [place], [place], [facility], . tel:[phone] [facility] Eye [facility], [address], [place], [place], [address], tel:[phone] SEC [facility] No Information Aug-0 7-200 7 Nayeli Guzman. [address] [facility] , [address], [place], [place], [facility], [place]. tel:[phone] Family History Family Member Type Diagnosis Age At Onset No Information Payers Payer name Insurance type Covered green party ID Authoriza tion(s) Medicare [place] [id number] For Life Mdcr Supp CI [id number] Social History Type Description Quantity Date Captured [...]
--- OUTSIDE RECORDS SUMMARY | 2024-10-08 17:26 | XMS_ITS | Clinical Summary ---
Author Organization [facility] Address [address] [place] [address] Care Team Providers Care Ict Developer Name Role Phone Niki Robins MUCK HAULER Primary Care Provider [phone] Allergies No known active allergies Medications mupirocin [...] Diagnosed Date Bilateral carotid artery stenosis 02/01/2022 Family History Medical History Relation Comments Lung [...] Comments Blood Pressure 128/70 04/16/2024 11:39 AM NETWORKING TECHNICIAN Pulse 92 04/16/2024 11:39 AM NETWORKING TECHNICIAN Temperature 36.8 C (98.2 F) 12/22/2021 2:04 PM CDT Respiratory Rate 18 12/22/2021 2:04 PM CDT Oxygen Saturation 97% 02/16/2022 10:49 AM NETWORKING TECHNICIAN Inhaled Oxygen Concentration - - Weight 98.9 kg (218 lb) 04/16/2024 11:39 AM NETWORKING TECHNICIAN Height 175.3 cm (5' 9) 04/16/2024 11:39 AM NETWORKING TECHNICIAN Body Mass Index 32.19 04/16/2024 11:39 AM NETWORKING TECHNICIAN Plan of Treatment Upcoming Encounters Date Type Department Care Team (Late st Contact Info) Description 05/18/2025 1:30 PM NETWORKING TECHNICIAN Appointment [facility] Ultrasound [address] [place] [address] Bebeto Hilton MD [facility] [address] [place], [place] [id number] Health Maintenance Due Date Last Done Comments DTaP, Tdap and Td Vaccines (1 - Tdap) 1959 Pneumococcal Vaccine: 50+ Years (1 of 1 - PCV) 1990 Zoster Vaccines (1 of 2) 1990 Annual Medicare Wellness Visit 2005 RSV Immunization or 60+ Years (1 - 1-dose 75+ series) 2015 COVID-19 Vaccine ( season) 2023 08/11/2021, 02/17/2021, 06/08/2020, Additional history exists PHQ-2 (Physician [place]) 03/19/2024 Meningococcal B Vaccine Aged Out No l onger eligible based on patient's age to complete this topic Meningococcal Vaccine Aged Out No laura mikhail eligible based on patient's age to complete this topic RSV Immunizations Under 20 Months Aged Out No longer eligible based on patient's age to complete this topic Insurance MEDICARE [facility] Care Teams Ict Developer Relationship Specialty Start Date End Date Niki Robins ROBIN PCP - General Nurse Practitioner Family 12/22/21
[2024-10-08 19:56] VITALS: BP 153/67; PULSE 73; RESP 18; TEMP 36.3; O2SAT 98
--- OUTSIDE RECORDS SUMMARY | 2024-10-08 22:15 | XMS_ITS | Continuity of Care Document ---
Author Organization [facility] Address [address] [facility] [address] [place] [address] Phone Care Team Providers Care Pediatric Dentist Name Role Phone Anish Desouza Unavailable Unavailable [...] Copied on Encounter Office/outpat ient Visit, Est [facility], [address] [place] [address] [address], [place], [place], [address], [place] tel:[phone] SEC [facility] No Information 200 9 Deo Anish. [address] [facility] [address] [facility], [place], [address], [place]. tel:[phone] [facility], [address], [place], [place], [address], [place] tel:[phone] SEC [facility] No Information 5200 9 Nayeli Guzman. [address] , [address], [place], [address], [place]. tel:[phone] [facility], [address] [place] [address] [address], [place], [place], [address], [place] tel:[phone] SEC [facility] No Information Sep-0 9-200 8 Nayeli Gagen. [address] [facility] , [address], [place], [place], [facility], . tel:[phone] [facility] Eye [facility], [address], [place], [place], [address], tel:[phone] SEC [facility] No Information Aug-0 7-200 7 Nayeli Guzman. [address] [facility] , [address], [place], [place], [facility], [place]. tel:[phone] Family History Family Member Type Diagnosis Age At Onset No Information Payers Payer name Insurance type Covered constitution party ID Authoriza tion(s) [place] [id number] For Life Mdcr Supp CI [id number] Social History Type Description Quantity Date Captured [...]
--- OUTSIDE RECORDS SUMMARY | 2024-10-08 22:15 | XMS_ITS | Clinical Summary ---
Author Organization [facility] Address [address] [place] [address] Care Team Providers Care Counter Stitcher Name Role Phone Niki Robins MANAGER BILINGUAL Primary Care Provider [phone] Allergies No known active allergies Medications mupirocin [...] Comments Blood Pressure 128/70 04/16/2024 11:39 AM FAST FOOD CREW LEAD Pulse 92 04/16/2024 11:39 AM FAST FOOD CREW LEAD Temperature 36.8 C (98.2 F) 12/22/2021 2:04 PM CDT Respiratory Rate 18 12/22/2021 2:04 PM CDT Oxygen Saturation 97% 02/16/2022 10:49 AM FAST FOOD CREW LEAD Inhaled Oxygen Concentration - - Weight 98.9 kg (218 lb) 04/16/2024 11:39 AM FAST FOOD CREW LEAD Height 175.3 cm (5' 9) 04/16/2024 11:39 AM FAST FOOD CREW LEAD Body Mass Index 32.19 04/16/2024 11:39 AM FAST FOOD CREW LEAD Plan of Treatment Upcoming Encounters Date Type Department Care Team (Late st Contact Info) Description 05/18/2025 1:30 PM FAST FOOD CREW LEAD Appointment [facility] Ultrasound [address] [place] [address] Bebeto Hilton MD [facility] [address] [place], [place] [id number] Health Maintenance Due Date Last Done Comments DTaP, Tdap and Td Vaccines (1 - Tdap) 1959 Pneumococcal Vaccine: 50+ Years (1 of 1 - PCV) 1990 Zoster Vaccines (1 of 2) 1990 Annual Medicare Wellness Visit 2005 RSV Immunization or 60+ Years (1 - 1-dose 75+ series) 2015 COVID-19 Vaccine ( season) 2023 08/11/2021, 02/17/2021, 06/08/2020, Additional history exists PHQ-2 (Physician [place]) 03/19/2024 Meningococcal B Vaccine Aged Out No l onger eligible based on patient's age to complete this topic Meningococcal Vaccine Aged Out No laura mikhail eligible based on patient's age to complete this topic RSV Immunizations Under 20 Months Aged Out No longer eligible based on patient's age to complete this topic Insurance [facility]ICARE [facility] Care Teams Counter Stitcher Relationship Specialty Start Date End Date Niki Robins ROBIN PCP - General Nurse Practitioner Family 12/22/21
--- NOTE | 2024-10-08 23:00 | ED.FALL ---
HPI - Fall General Chief Complaint: Fall Stated Complaint: fall, L sided rib pain Time Seen by Provider: 10/08/24 22:03 History of Present Illness HPI Narrative: 84-year-old male with history of CKD, hypertension, GERD, hyperlipidemia, carotid artery stenosis presents to the emergency department for left-sided rib pain after ground level mechanical fall that occurred 2 days ago. Patient states he tripped over a scale in the bathroom and fell, landing on his left ribs. He did hit his head but did not lose consciousness. He is not anticoagulated. He is reporting pain to the left anterior lateral ribs that is worse with movement and deep inspiration since the fall. He denies other injuries. Related Data Home Medications ?Medication ?Instructions ?Recorded ?Confirmed ?Last Taken ?Type aspirin 81 mg tablet,delayed 81 mg PO DAILY 07/16/19 08/27/24 Unknown History release (Aspir-) cholecalciferol (vitamin D3) 50 50 mcg PO DAILY 12/09/21 08/27/24 Unknown History mcg (2,000 unit) capsule multivitamin (Daily Multi-Vitamin 1 tablet PO DAILY 12/09/21 08/27/24 Unknown History tablet) enzalutamide 80 mg tablet (Xtandi) 80 mg PO BID 08/27/24 08/27/24 Unknown History oxybutynin chloride 15 mg 15 mg PO DAILY 08/27/24 08/27/24 Unknown History tablet,extended release 24 hr Allergies Allergy/AdvReac Type Severity Reaction Status Date / Time No Known Allergies Allergy Verified 06/11/24 13:50 Review of Systems Review of Systems: All systems reviewed & are unremarkable except as noted in HPI and below PMFSH Past Medical History Medical History Prostatitis CKD (chronic kidney disease) IFG (impaired fasting glucose) HTN (hypertension) History of basal cell carcinoma (BCC) RLS (restless legs syndrome) Insomnia Chronic obstructive pulmonary disease Headaches due to old head injury GERD (gastroesophageal reflux disease) Bilateral carotid artery stenosis HLD (hyperlipidemia) History of prostate cancer Family History Family History Father Family history of lung cancer Other Hypertension Malignant neoplasm of prostate Social History Social History Smoking packs per day: 1.5 Smoking cigarettes per day: 30.0 Years smoked: 50 Smoking pack-years: 75.00 Smoking status: Former smoker Tobacco type: cigarettes Second hand tobacco smoke exposure: No Smoking end date: 03/19/10 Alcohol intake: never Substance use: never Substance use type: does not use Do You Feel Safe in your Home?: Yes Lack of Transportation: No Lack of Food: Never True Current Housing: I Have Housing Concerned About Future Housing: No Difficulty Paying Gas/Electric Bills: No Difficulty Paying for Meds: No Currently Unemployed: No Education: Associate Degree Difficulty w/ Childcare or Family Care: No Living arrangements: with family Occupation/Education: retired Gender identity (if verbalized by the patient): Male Sexual Orientation (if Verbalized by the Patient): Straight or Heterosexual Exam Narrative: GENERAL: Well-appearing, well-nourished, and in no acute distress. HEAD: Normocephalic, atraumatic. EYES: PERRLA and EOMI. ENT: Nares clear, no rhinorrhea or epistaxis. Mucous membranes moist. NECK: No midline cervical spinous tenderness, crepitus, step-offs or deformities BACK: No midline thoracolumbar spinous tenderness, crepitus, step-offs or deformities CHEST: Clear to auscultation. No respiratory distress. Tenderness to the left anterior lateral chest wall with no overlying skin changes, crepitus or deformities HEART: Regular rate and rhythm. No murmur heard. Normal peripheral pulses. ABDOMEN: Soft, nontender, nondistended, normal active bowel sounds. EXTREMITIES: Normal range of motion. No edema. No tenderness to BUE or BLE SKIN: Warm, dry, no rash. NEURO: No focal deficits. Alert and oriented x3 Course Vital Signs Vital signs: Vital Signs Temperature 98.2 F 10/08/24 17:24 Pulse Rate 82 10/08/24 17:24 Respiratory Rate 16 10/08/24 17:24 Blood Pressure 144/64 H 10/08/24 17:24 Pulse Oximetry 99 10/08/24 17:24 Temperature 97.3 F L 10/08/24 19:56 Pulse Rate 73 10/08/24 19:56 Respiratory Rate 18 10/08/24 19:56 Blood Pressure 153/67 H 10/08/24 19:56 Pulse Oximetry 98 10/08/24 19:56 MDM - Fall MDM Narrative Medical decision making narrative: 84-year-old male presents to the emergency department for left-sided rib pain after a ground level mechanical fall that occurred 2 days ago. See HPI for further history. Vitals are stable. Patient is afebrile and nontoxic appearing. Exam significant for reproducible left-sided chest wall pain over the anterior lateral left ribs. CT brain shows age-related changes to the brain with no fracture or acute intracranial process. CT cervical spine shows severe cervical spondylosis with no acute osseous abnormality. There is prominent atherosclerotic calcification of the bilateral carotid bulbs, potentially hemodynamically significant on the right. X-ray of the left ribs showed no acute osseous findings. Given significant tenderness, will obtain CT chest without contrast for further evaluation of her fractures. CT chest shows nondisplaced anterior left 8th rib fracture with mild bibasilar atelectasis, no other acute cardiopulmonary disease. Patient was updated on results. Shared decision making regarding further imaging of the carotid stenosis. Patient does have an extensive history of known carotid stenosis and follows with Dr. Hilton vascular surgery at [place]. Per chart review patient had a carotid Doppler study on 07/12/2023 which showed 60-79% stenosis in the right and left internal carotid artery. Patient states he has had carotid Dopplers within the past 6 months at [place] but is uncertain of the results. I did offer to obtain a CTA of his carotid arteries for further evaluation today however patient politely declined and states he will follow-up closely with his vascular surgeon. Advised Tylenol lidocaine patches for rib fracture and oxycodone p.r.n. for breakthrough pain. Patient was given incentive spirometer and instructed to use it frequently for rib fracture. Patient was given strict ED return precautions. He is agreeable with the plan verbalized understanding. Discharged in stable condition. Discharge Plan Discharge Clinical Impression: Fracture of left eighth rib Carotid artery stenosis Qualifiers: Laterality: bilateral Qualified Code(s): I65.23 - Occlusion and stenosis of bilateral carotid arteries Patient Disposition: Home Condition: Stable Instructions: Antibiotic Form, Rib Fracture (ED), Carotid Artery Disease (DC) Additional Instructions: You were evaluated in the emergency department for left rib pain after a fall. Your found have a left 8th rib fracture as discussed. Please take 1000 mg of Tylenol as needed every 6 hours and use the lidocaine patches as directed. If you continue to have breakthrough pain, you can take oxycodone as directed. Incidentally, you were found have significant carotid artery stenosis as discussed. We did discuss obtaining further CT imaging of your carotids however you politely declined and would like to follow-up closely with her surgeon. Please make sure to contact Dr. Hilton for close follow-up. Return to the emergency department if you develop chest pain, shortness of breath, fever, vision changes, focal numbness or weakness, or other concerning symptoms. Patient Language: Somali Prescriptions: New lidocaine 5 % adhesive patch,medicated 1 patch topical DAILY Qty: 15 0RF Rx Instructions: leave on most painful area for up to 12 hrs. do not use more than 1 patch in a 24-hour period. oxycodone 5 mg capsule 5 mg PO Q8H PRN (Reason: pain) Qty: 14 0RF No Action multivitamin [Daily Multi-Vitamin] Tablet 1 tablet PO DAILY cholecalciferol (vitamin D3) 50 mcg (2,000 unit) capsule 50 mcg PO DAILY Bevespi Aerosphere 9-4.8 mcg HFA aerosol inhaler 2 puff inhalation Q12H 90 Days Qty: 32.1 3RF aspirin [Aspir-81] 81 mg tablet,delayed release (DR/EC) 81 mg PO DAILY Xtandi 80 mg tablet 80 mg PO BID oxybutynin chloride 15 mg tablet extended release 24hr 15 mg PO DAILY ivermectin [Soolantra] 1 % cream 1 applic TOPICAL DAILY Qty: 45 0RF albuterol sulfate 90 mcg/actuation HFA aerosol inhaler See Rx Instructions .ROUTE .COMPLEX Qty: 17 4RF Dose Instruction: USE 1 INHALATION EVERY 4 HOURS NEEDED FOR SHORTNESS OF BREATH OR WHEEZING Rx Instructions: USE 1 INHALATION EVERY 4 HOURS NEEDED FOR SHORTNESS OF BREATH OR WHEEZING esomeprazole magnesium 40 mg capsule,delayed release(DR/EC) See Rx Instructions .ROUTE .COMPLEX Qty: 90 3RF Dose Instruction: TAKE 1 CAPSULE DAILY Rx Instructions: TAKE 1 CAPSULE DAILY tamsulosin 0.4 mg capsule See Rx Instructions .ROUTE .COMPLEX Qty: 90 2RF Dose Instruction: TAKE 1 CAPSULE DAILY Rx Instructions: TAKE 1 CAPSULE DAILY amitriptyline 50 mg tablet 50 mg PO QHS Qty: 90 3RF cetirizine [Zyrtec] 10 mg tablet 10 mg PO DAILY Qty: 90 2RF gabapentin 400 mg capsule See Rx Instructions .ROUTE .COMPLEX Qty: 90 3RF Dose Instruction: TAKE 1 CAPSULE AT BEDTIME Rx Instructions: TAKE 1 CAPSULE AT BEDTIME zolpidem 10 mg tablet 10 mg PO .qhs Qty: 90 0RF hydrochlorothiazide 25 mg tablet 25 mg PO DAILY Qty: 90 2RF lisinopril 40 mg tablet 40 mg PO DAILY Qty: 90 2RF atorvastatin 80 mg tablet See Rx Instructions .ROUTE .COMPLEX Qty: 90 2RF Dose Instruction: TAKE 1 TABLET DAILY Rx Instructions: TAKE 1 TABLET DAILY alprazolam [Xanax] 0.25 mg tablet 0.25 mg PO TID PRN (Reason: anxiety) Qty: 60 0RF Follow-up/Referrals: Jamshid Finn MD [Primary Care Provider] - Hilton,Bebeto Fraga MD [Non-Staff] -
[2024-10-09] MEDS: LIDOCAINE 5% PATCH 1 PATCH TRANSDERM (00:34)
== END 2024-10-09 00:57 | disposition home or self-care (01) ==
PROVIDERS: Emergency Provider Physician Assistant; PCP Family Medicine
DX: S22.32XA Fracture of one rib, left side, initial encounter for closed fracture (principal); I65.23 Occlusion and stenosis of bilateral carotid arteries; I12.9 Hypertensive chronic kidney disease with stage 1 through stage 4 chronic kidney disease, or unspecified chronic kidney disease; N18.9 Chronic kidney disease, unspecified; J44.9 Chronic obstructive pulmonary disease, unspecified; E78.5 Hyperlipidemia, unspecified; G25.81 Restless legs syndrome; K21.9 Gastro-esophageal reflux disease without esophagitis; Z85.46 Personal history of malignant neoplasm of prostate; Z85.828 Personal history of other malignant neoplasm of skin; Z87.891 Personal history of nicotine dependence; Z79.899 Other long term (current) drug therapy; W18.09XA Striking against other object with subsequent fall, initial encounter
CPT/HCPCS: 70450; 71101; 71250; 72125; 99284; A9270

== ENCOUNTER 2024-11-24 14:10 | Outpatient (CLI) | payer MEDICARE, OTHER, SELFPAY ==
--- NOTE | ~2024-11-24 | US_ITS ---
EXAMINATION: US carotid duplex BI DATE: 11/24/2024 15:11 INDICATION: Carotid stenosis TECHNIQUE: Grayscale, color Doppler, and pulsed Doppler images of the cervical carotid arteries were obtained. The degree of vessel stenosis is placed in one of the following categories: normal, <50%, 50-69%, >=70% but less than near- occlusion, near-occlusion, or total occlusion. Note that percent stenosis relative to normal distal artery lumen diameter is indirectly measured from velocity measurements as described by Bradley, et al. Radiology 2003; 229:340-346. Notes: Normal: Peak systolic velocity <125 centimeters/sec and no plaque <50%. Peak systolic velocity <125 (EDV <40; ICA/CCA PSV ratio <2.0; used these factors only a tandem lesions or low cardiac output or contralateral disease) 50-69 %: PSV 125-230 (EDV 40-100; ratio 2-4) >= 70% but less than near occlusion: PSV greater than 230 (EDV > 100; ratio> 4.0) Near Occlusion: PSV that is variable; markedly narrowed lumen Occlusion: Absent flow on color/spectral Doppler and no lumen on smith scale. COMPARISON: None. FINDINGS: RIGHT: The right common carotid artery (CCA) peak systolic velocity (PSV) is 87 cm/s. The right internal carotid artery (ICA) PSV is 232 cm/s. The right ICA end- diastolic velocity (EDV) is 54 cm/s. The right ICA/CCA PSV ratio is 2.7. The external carotid artery (ECA) PSV is 176 cm/s. There is antegrade flow in the right vertebral artery. LEFT: The left CCA PSV is 84 cm/s. The left ICA PSV is 157 cm/s. The left ICA EDV is 37 cm/s. The left ICA/CCA PSV ratio is 1.9. The ECA PSV is 111 cm/s. There is antegrade flow in the left vertebral artery. IMPRESSION: 1. Greater than or equal to 70% stenosis in the right internal carotid artery by sonographic criteria. 2. 50-69% stenosis in the left internal carotid artery by sonographic criteria. Reviewed, dictated and finalized at location O. IMPRESSION: 1. Greater than or equal to 70% stenosis in the right internal carotid artery b y sonographic criteria. 2. 50-69% stenosis in the left internal carotid artery by sonographic criteria.
--- OUTSIDE RECORDS SUMMARY | 2024-11-24 14:16 | XMS_ITS | Clinical Summary ---
Author Organization [facility] Address [address] [place] [address] Care Team Providers Care [employer] Storage Architect Name Role Phone Niki Robins DISPLAY SCREEN FABRICATOR Primary Care Provider [phone] Allergies No known active allergies Medications mupirocin [...] Comments Blood Pressure 128/70 04/16/2024 11:39 AM STRAIGHT CUTTER Pulse 92 04/16/2024 11:39 AM STRAIGHT CUTTER Temperature 36.8 C (98.2 F) 12/22/2021 2:04 PM CDT Respiratory Rate 18 12/22/2021 2:04 PM CDT Oxygen Saturation 97% 02/16/2022 10:49 AM STRAIGHT CUTTER Inhaled Oxygen Concentration - - Weight 98.9 kg (218 lb) 04/16/2024 11:39 AM STRAIGHT CUTTER Height 175.3 cm (5' 9) 04/16/2024 11:39 AM STRAIGHT CUTTER Body Mass Index 32.19 04/16/2024 11:39 AM STRAIGHT CUTTER Plan of Treatment Upcoming Encounters Date Type Department Care Team (Late st Contact Info) Description 05/18/2025 1:30 PM STRAIGHT CUTTER Appointment [facility] [address] [place] [address] Bebeto Hilton MD [facility] [address] [place], [place] [id number] Health Maintenance Due Date Last Done Comments DTaP, Tdap and Td Vaccines (1 - Tdap) 1959 Pneumococcal Vaccine: 50+ Years (1 of 1 - PCV) 1990 Zoster Vaccines (1 of 2) 1990 Annual Medicare Wellness Visit 2005 RSV Immunization or 60+ Years (1 - 1-dose 75+ series) 2015 PHQ-2 (Physician [place]) 03/19/2024 COVID-19 Vaccine ( - season) 2024 08/11/2021, 02/17/2021, 06/08/2020, Additional history exists Meningococcal B Vaccine Aged Out No l onger eligible based on patient's age to complete this topic Meningococcal Vaccine Aged Out No laura mikhail eligible based on patient's age to complete this topic RSV Immunizations Under 20 Months Aged Out No longer eligible based on patient's age to complete this topic Insurance MEDICARE [facility] Care Teams Emc Storage Architect Relationship Specialty Start Date End Date Niki Robins ROBIN PCP - General Nurse Practitioner Family 12/22/21
== END 2024-11-24 14:11 | disposition home or self-care (01) ==
LOC: ANHIMG 14:12
PROVIDERS: PCP Family Medicine; Visit Provider Family Medicine
DX: I65.23 Occlusion and stenosis of bilateral carotid arteries (principal)
CPT/HCPCS: 93880

== ENCOUNTER 2024-12-17 13:04 | Outpatient (CLI) | payer MEDICARE, OTHER, SELFPAY ==
--- NOTE | ~2024-12-17 | XR_ITS ---
EXAMINATION: XR ribs RT 2V w CXR 2V DATE: 12/17/2024 13:48 INDICATION: Fell on right side. Pleurodynia. TECHNIQUE: Frontal and lateral images of the chest were obtained. 3 images of the right ribs were obtained. COMPARISON: Chest radiograph dated 06/01/2022 FINDINGS: Heart size is unchanged. No pneumothorax. No pleural effusion. No free air under the diaphragm. Small opacities in the lower lungs. No radiographic evidence for a right rib fracture. Bones appear osteopenic. IMPRESSION: 1. No radiographic evidence for right-sided rib fracture. 2. Small opacities in the mid and lower lungs which represents atelectasis/scarring or infiltrates. If symptoms persist or worsen, consider a short-term follow-up study or additional imaging for further assessment. Reviewed, dictated and finalized at location Q. IMPRESSION: 1. No radiographic evidence for right-sided rib fracture. 2. Small opacities in the mid and lower lungs which represents atelectasis/scar ring or infiltrates. If symptoms persist or worsen, consider a short-term follow-up study or additio nal imaging for further assessment.
--- OUTSIDE RECORDS SUMMARY | 2024-12-17 13:11 | XMS_ITS | Clinical Summary ---
Author Organization [facility] Address [address] [place] [address] Care Team Providers Care Senior Animator Name Role Phone Niki Robins ROBIN Primary Care Provider [phone] Allergies No known active allergies Medications mupirocin [...] Comments Blood Pressure 128/70 04/16/2024 11:39 AM VP OF TECHNOLOGY Pulse 92 04/16/2024 11:39 AM VP OF TECHNOLOGY Temperature 36.8 C (98.2 F) 12/22/2021 2:04 PM CDT Respiratory Rate 18 12/22/2021 2:04 PM CDT Oxygen Saturation 97% 02/16/2022 10:49 AM VP OF TECHNOLOGY Inhaled Oxygen Concentration - - Weight 98.9 kg (218 lb) 04/16/2024 11:39 AM VP OF TECHNOLOGY Height 175.3 cm (5' 9) 04/16/2024 11:39 AM VP OF TECHNOLOGY Body Mass Index 32.19 04/16/2024 11:39 AM VP OF TECHNOLOGY Plan of Treatment Upcoming Encounters Date Type Department Care Team (Late st Contact Info) Description 12/24/2024 11:30 AM CDT [facility] [address] [facility] [phone] Bebeto Hilton MD [facility]. [facility] [address] [place] [address] 05/18/2025 1:30 PM VP OF TECHNOLOGY Appointment [facility] [address] [place] [address] Bebeto Hilton MD [facility]. [id number] [place] [address] Health Maintenance Due Date Last Done Comments DTaP, Tdap and Td Vaccines (1 - Tdap) 1959 Pneumococcal Vaccine: 50+ Years (1 of 1 - PCV) 1990 Zoster Vaccines (1 of 2) 1990 Annual Medicare Wellness Visit 2005 RSV Immunization or 60+ Years (1 - 1-dose 75+ series) 2015 COVID-19 Vaccine ( - season) 2024 08/11/2021, 02/17/2021, 06/08/2020, Additional history exists Influenza Adult (#1) 2024 11/25/2019, 12/24/2018, 11/29/2017, Additional history exists Meningococcal B Vaccine Aged Out No l onger eligible based on patient's age to complete this topic Meningococcal Vaccine Aged Out No laura mikhail eligible based on patient's age to complete this topic RSV Immunizations Under 20 Months Aged Out No longer eligible based on patient's age to complete this topic Insurance MEDICARE [facility] Care Teams Senior Animator Relationship Specialty Start Date End Date Niki Robins FNP PCP - General Nurse Practitioner Family 12/22/21
[2024-12-17 13:59] LABS: Hematocrit 36.4 % (42.0-52.0); Hemoglobin 12.1 g/dL (14.0-18.0); Mean Corpuscular HGB Conc 33.2 g/dl (32-36); Mean Corpuscular Hemoglobin 31.3 pg (26-34); Mean Corpuscular Volume 94.3 fl (80-100); Platelet Count Result 208 k/mm3 (150-375); Red Blood Count 3.86 M/mm3 (4.6-6.20); White Blood Count 5.5 K/mm3 (4.5-10.0)
[2024-12-17 14:06] LABS: Add Urine Microscopic? NO; Appearance Urine Clear (Clear); Glucose Urine UA Negative (Negative); Leukocyte Esterase Ur Negative LEU/UL (Negative); Nitrate Urine Negative (Negative); Specific Grav Ur 1.011 (1.001-1.035)
[2024-12-17 14:08] LABS: Alanine Aminotransferase 14 U/L (6-50); Albumin Level 4.0 g/dL (3.5-5.1); Alkaline Phosphatase 86 U/L (38-126); Anion Gap 6 mmol/L (4-12); Aspartate Amino Transferase 23 U/L (17-59); Bilirubin,Total 1.2 mg/dL (0.2-1.3); Blood Urea Nitrogen 16 mg/dL (9-20); Calcium 9.1 mg/dL (8.4-10.2); Carbon Dioxide 27 mmol/L (22-30); Chloride 99 mmol/L (98-107); Cholesterol 147 mg/dL (0-200); Estimated Glomerular Filt Rate > 60; Glucose 99 mg/dL (65-110); HDL Direct 52 mg/dL; Potassium 3.9 mmol/L (3.4-5.0); Sodium 132 mmol/L (137-145); Total Protein 6.9 g/dL (6.3-8.2); Triglycerides 124 mg/dL (<150)
[2024-12-17 14:44] LABS: Thyroid Stimulating Hormone 0.797 uIU/mL (0.465-4.680)
[2024-12-17 16:13] LABS: Hemoglobin A1C 5.9 % (<5.7)
== END 2024-12-17 13:05 | disposition home or self-care (01) ==
PROVIDERS: PCP Family Medicine; Visit Provider Physician Assistant
DX: R07.81 Pleurodynia (principal); I10 Essential (primary) hypertension; Z00.00 Encounter for general adult medical examination without abnormal findings; N18.31 Chronic kidney disease, stage 3a; J44.9 Chronic obstructive pulmonary disease, unspecified; R73.01 Impaired fasting glucose; E78.2 Mixed hyperlipidemia; D64.9 Anemia, unspecified; W19.XXXA Unspecified fall, initial encounter; R91.8 Other nonspecific abnormal finding of lung field
CPT/HCPCS: 36415; 71046; 71100; 80053; 80061; 81003; 83036; 84443; 85027

== ENCOUNTER 2025-03-04 12:26 | Outpatient (CLI) | payer MEDICARE, OTHER, SELFPAY ==
--- NOTE | ~2025-03-04 | MR_ITS ---
EXAMINATION: MR thoracic spine wo con DATE: 03/04/2025 13:36 INDICATION: Injury TECHNIQUE: Magnetic resonance imaging (MRI) of the thoracic spine was performed without intravenous contrast. Sagittal localizer T1-weighted FSE of the cervical spine was obtained. Thoracic spine sequences included sagittal T2-weighted FSE, sagittal T1-weighted FSE, sagittal T2-weighted FS FSE, and axial T2-weighted FSE. COMPARISON: Sagittal images from chest CT October 08, 2024 FINDINGS: 50% anterior compression fracture of the T7 with no retropulsion or involvement of the posterior column has occurred since the previous exam. There is mild increased T2-weighted signal in the superior endplate. The remainder of the vertebral body appears normal in signal. No other fracture seen. Scattered hemangiomatous changes, and moderately severe degenerative changes with kyphotic angulation also moderately severe in the mid thoracic spine. The spinal cord within the thoracic spine appears normal signal with no discrete medullary cord lesions or gross myelopathic changes. No large disc herniation or spinal canal stenosis. IMPRESSION: 1. Probable subacute 50% anterior compression fracture T7 with no retropulsion. 2. Other chronic findings as above. Reviewed, dictated and finalized at location A. SOFTWARE DEVELOPMENT ENGINEER
--- OUTSIDE RECORDS SUMMARY | 2025-03-04 14:16 | XMS_ITS | Encounter Summary ---
Author Organization [facility] Address [facility] [place] [address] Care Team Providers Care Stave Block Roller Name Role Phone Jamshid Finn MD Primary Care Provider [phone] Reason for Referral * Surgical (Routine) - Authorized Specialty Diagnoses / Procedures Referred By Janette yoo Referred To Contact Diagnoses Carotid stenosis, right Procedures Case request operating room: ENDARTERECTOMY CAROTID (right side of neck) Bebeto Hilton MD [facility]. [facility] [address] [place] [address] Phone: tel: fax: Referral ID Status Reason Start Date Expiration Date V isits Requested Visits Authorized [id number] Authorized 02/23/2025 02/23/2026 1 1 TAL MARKETING ANALYST Encounter Details Date Type Department Care Team (Late st Contact Info) Description 02/23/2025 Prep for Procedure [facility], [facility] [address] [place], [place] [phone] Bebeto Hilton MD [facility]. [facility] [address] [place], [place] [phone] Social History Tobacco Use Types Packs/Day Years Used Date Smoking Tobacco: Former Smokeless Tobacco: Former Alcohol Use Standard Drinks/Week Comments Yes 1 [...] on file Sexual Orientation Not on file documented as of this encounter Plan of Treatment Upcoming Encounters Date Type Department Care Team (Latest Contact Info) Description 04/13/2025 11:30 AM DIGITAL MARKETING ANALYST Appointment [facility] [place] [address] Bebeto Hilton MD Three [facility]. [address] [address] 04/27/2025 12:55 PM DIGITAL MARKETING ANALYST Hospital Encounter [facility] [place] [address] Bebeto Hilton MD Three [address] [phone] 04/27/2025 12:55 PM DIGITAL MARKETING ANALYST - 04/27/2025 4:01 PM DIGITAL MARKETING ANALYST Surgery [facility] [place], [place] [address] Bebeto Hilton MD Three [address] [id number] ENDARTERECTOMY CAROTID (right side of neck) 05/18/2025 1:30 PM DIGITAL MARKETING ANALYST Appointment [facility] Ultrasound [address] [place], [place] [phone] Bebeto Hilton MD Three [address] [phone] Scheduled Orders Name Type Priority Associated Diagnoses Order Schedule Case request operating room: ENDARTERECTOMY CAROTID (right side of neck) Case Request Routine Carotid stenosis, right Once for 1 Occurrences starting 02/23/2025 until 02/23/2025 CBC W/DIFF AUTOMATED Lab Routine Carotid stenosis, right Expected: 04/13/2025, Expires: 04/13/2026 COMPREHENSIVE METABOLIC PANEL Lab Routine Carotid stenosis, right Expected: 04/13/2025, Expires: 04/13/2026 TYPE & SCREEN Blood Bank Routine Carotid stenosis, right Expected: 04/13/2025, Expires: 04/13/2026 MRSA SCREENING Microbiology Routine Carotid stenosis, right Expected: 04/13/2025, Expires: 04/13/2026 Scheduled Procedures Name Priority Associated Diagnoses Date/Ti me ENDARTERECTOMY CAROTID Carotid stenosis, right 04/27/2025 12:55 PM DIGITAL MARKETING ANALYST documented as of this encounter Goals Goal Patient Goal Type Associated Problems Recent Progress Patient-Stated? Author Autogenerat ed Goal Care Plan Autogenerated Problem No Haley Baldwin RN documented as of this encounter Visit Diagnoses Diagnosis Carotid stenosis, right- Primary Occlusion and stenosis of carotid artery without mention of cerebral infarction Carotid stenosis, right- Primary Occlusion and stenosis of carotid artery without mention of cerebral infarction Carotid stenosis, right Occlusion and stenosis of carotid artery without mention of cerebral infarction documented in this encounter Additional Health Concerns Active Problems Noted Date Diagnosed Date Autogenerated Problem 02/23/2025 documented as of this encounter Care Teams Stave Block Roller Relationship Specialty Start Date End Date Jamshid Finn MD [address] [place] [address] PCP - General FAMILY PRACTICE 01/01/25 documented as of this encounter
--- OUTSIDE RECORDS SUMMARY | 2025-03-04 14:16 | XMS_ITS | Clinical Summary ---
Author Organization [facility] Address [address] [place] [address] Care Team Providers Care Principal Hardware Architect Name Role Phone Jamshid Finn MD Primary Care Provider [phone] Allergies No known active allergies Medications mupirocin [...] Take 0.4 mg by mouth daily. Active cetirizine (ZYRTEC) 10 MG tablet Take [...] mouth nightly as needed for Sleep. Active ALPRAZolam (XANAX) 0.25 MG tablet Take 0.25 mg by mouth nightly as needed for Sleep. Active Ivermectin 1 % Cream Active atorvastatin (LIPITOR) 80 MG tablet 5 Active XTANDI 80 MG tablet 5 Active BEVESPI AEROSPHERE 9-4.8 MCG/ACT Aerosol 5 Active lidocaine (LIDODERM) 5 % APPLY 1 PATCH TO THE AFFECTED AREA FOR UP TO 12 HOURS. LEAVE OFF FOR 12 HOURS BEFORE REAPPLYING 5 Active oxybutynin XL (DITROPAN XL) 15 MG 24 hr tablet 5 Active oxyCODONE immediate release (ROXICODONE) 5 MG immediate release tablet 5 Active hydroCHLOROthiazi de (HYDRODIURIL) 25 MG tablet 5 Active lisinopril (PRINIVIL) 40 MG tablet 5 Active Active Problems Problem Noted Date Diagnosed Date Carotid stenosis, right 02/23/2025 Bilateral carotid artery stenosis 02/01/2022 Strain of lumbar region 05/27/2014 Encounters Date Type Department Care Team Description 02/27/2025 Telephone [facility] [address] [address] Bebeto Rosenthal MD Surgical Clearance (CARDIAC CLEARANCE) 02/23/2025 Telephone [facility] [address] [phone] Bebeto Rosenthal MD Surgical Clearance (CARDIAC CLEARANCE-DR. ESCAMILLA) 02/23/2025 Prep for Procedure [facility] [address] [phone] Bebeto Rosenthal MD 02/23/2025 Telephone [facility] [address] [address] Bebeto Rosenthal MD Schedule Surgery 02/20/2025 Telephone [facility] [address] [address] Bebeto Rosenthal MD Schedule Surgery 02/11/2025 9:45 AM SAP SENIOR DEVELOPER Office Visit [facility] [address] [place] [address] Bebeto Rosenthal MD Carotid Stenosis 02/11/2025 Travel 01/20/2025 Telephone [facility], [address] [address] Bebeto Rosenthal MD Results 01/01/2025 10:08 AM CDT - 01/01/2025 11:59 PM CDT Hospital Encounter [facility] [id number] [place] [address] Bebeto Rosenthal MD Discharge Disposition: Home or Self Care (Routine Discharge) 01/01/2025 Travel 12/24/2024 11:30 AM CDT Office Visit [facility] [address] [place] [address] Bebeto Rosenthal MD Follow Up 12/24/2024 Orders Only [facility], [address] [address] Bebeto Rosenthal MD 12/24/2024 Travel from Last 3 Months Immunizations Immunization Administration Dates Next Due Influenza (Generic) 12/24/2018, 8,12/17/2013,2012 Influenza Adult (Generic) 11/25/2019,02/2017,12/08/2015,2014 MODERNA COVID-19 (CHAMBER MAGISTRATE BRAYAN CRISTÓBAL), MRNA, LNP-S, PF, 50 MCG/ 0.25 ML DOSE 08/11/2021,02/17/2021 Family History Medical History Relation Comments Lung [...] Sign Reading Time Taken Comments Blood Pressure 159/86 02/11/2025 9:42 AM SAP SENIOR DEVELOPER Pulse 74 02/11/2025 9:42 AM SAP SENIOR DEVELOPER Temperature 36.8 C (98.2 F) 12/22/2021 2:04 PM CDT Respiratory Rate 16 12/24/2024 11:27 AM CDT Oxygen Saturation 100% 02/11/2025 9:42 AM SAP SENIOR DEVELOPER Inhaled Oxygen Concentration - - Weight 90.3 kg (199 lb) 02/11/2025 9:42 AM SAP SENIOR DEVELOPER Height 172.7 cm (5' 8) 02/11/2025 9:42 AM SAP SENIOR DEVELOPER Body Mass Index 30.26 02/11/2025 9:42 AM SAP SENIOR DEVELOPER Plan of Treatment Upcoming Encounters Date Type Department Care Team (Latest Contact Info) Description 04/13/2025 11:30 AM SAP SENIOR DEVELOPER Appointment [facility] [place] [address] Bebeto Rosenthal MD [address] [address] 04/27/2025 12:55 PM SAP SENIOR DEVELOPER Hospital Encounter [facility] [place] [address] Bebeto Rosenthal MD [address] [id number] 04/27/2025 12:55 PM SAP SENIOR DEVELOPER - 04/27/2025 4:01 PM SAP SENIOR DEVELOPER Surgery [facility] OR [place], [place] [address] Bebeto Rosenthal MD Three [facility]. [facility] [address] [place], [place] [phone] ENDARTERECTOMY CAROTID (right side of neck) 05/18/2025 1:30 PM SAP SENIOR DEVELOPER [facility]ointment [facility] [address] [place] [address] Bebeto Rosenthal MD Three [facility]. [facility] [address] [place], [place] [phone] Scheduled Procedures Name Priority Associated Diagnoses Date/Ti me ENDARTERECTOMY CAROTID Carotid stenosis, right 04/27/2025 12:55 PM SAP SENIOR DEVELOPER Health Maintenance Due Date Last Done Comments DTaP, Tdap and Td Vaccines (1 - Tdap) 1959 Pneumococcal Vaccine: 50+ Years (1 of 1 - PCV) 1990 Zoster Vaccines (1 of 2) 1990 Annual Medicare Wellness Visit 2005 RSV Immunization or 60+ Years (1 - 1-dose 75+ series) 2015 COVID-19 Vaccine ( season) 2024 08/11/2021, 02/17/2021, 06/08/2020, Additional history exists Influenza Adult (#1) 2024 11/25/2019, 12/24/2018, 11/29/2017, Additional history exists Hepatitis A Vaccines Aged Out No long er eligible based on patient's age to complete this topic Meningococcal B Vaccine Aged Out No l onger eligible based on patient's age to complete this topic Meningococcal Vaccine Aged Out No laura mikhail eligible based on patient's age to complete this topic RSV Immunizations Under 20 Months Aged Out No longer eligible based on patient's age to complete this topic Goals Goal Patient Goal Type Associated Problems Recent Progress Patient-Stated? Author Autogenerat ed Goal Care Plan Autogenerated Problem No Haley Baldwin mesmerist Procedure Name Priority Date/Time Associated Diagnosis Comments CTA HEAD+NECK Routine 01/01/2025 10:47 AM CDT Carotid stenosis, bilateral CREATININE W/GFR Routine 01/01/2025 10:3 5 AM CDT from Last 3 Months Results * CTA HEAD+NECK (01/01/2025 10:47 AM CDT) Anatomical Region Laterality Modality Head, Neck Computed Tomogra phy 01/09/2025 1:40 PM CDT Impressions 01/09/2025 1:54 PM CDT IMPRESSION: HEAD CTA: 1. Moderate to severe stenosis the proximal V4 segment of the intracranial right vertebral artery. 2. No large vessel occlusion or intracranial aneurysm. 3. Mild cerebral atrophy and chronic small ischemic changes supratentorial white matter NECK CTA: 1. 87% stenosis the proximal right internal coronary. 2. 70% stenosis the proximal left internal carotid artery. 3. Severe stenosis at the origin of the right vertebral artery. 4. No measurable left vertebral artery stenosis. 5. Nonspecific ground glass opacities and septal thickening within the upper lungs compatible with edema, atypical pneumonia or chronic changes. MRI would be more sensitive for the detection of an acute infarct. Referred By: BEBETO ROSENTHAL Interpreted By: Rosendo Lou MD, 01/09/2025 1:40 PM Narrative 01/09/2025 1:54 [place] [address] EXAMINATION:CT angiogram of the head and neck with and without contrast INDICATION:Carotid artery stenosis TECHNIQUE: Axial CT images of the head were acquired without intravenous contrast. Axial CT images of the head and neck were acquired following administration of 80 mL Isovue 370 contrast intravenously. Sagittal and coronal reformats were constructed. Radiation dose reduction techniques were used. 3D MIPS were constructed. Carotid stenosis is reported according to NASCET criteria. COMPARISON: Carotid ultrasound 06/03/2024 FINDINGS:Head CTA: No acute intracranial hemorrhage, mass effect or midline shift or extra-axial fluid collection. There is mild cerebral atrophy with concordant province of the ventricles. Mild decreased density noted within the supratentorial white matter. No acute osseous abnormality. Paranasal sinuses are clear. There is a partial opacification the left mastoid air cells. The orbits and globes are unremarkable. Bilateral ocular lens replacement noted. There is opacification of the intracranial internal carotid, vertebral and basilar arteries. There is opacification of the anterior, middle and posterior cerebral arteries. There is moderate to severe stenosis the proximal V4 segment of the right vertebral artery. No other focal intracranial stenosis, large vessel occlusion or aneurysm. There is opacification of the superior sagittal sinus, internal cerebral veins, vein of Derek, straight sinus, transverse sinuses and sigmoid sinuses. No abnormal enhancement. Neck CTA: Calcified plaque noted throughout the aortic arch. The origins of great vessels are unremarkable. The innominate and proximal right subclavian artery are unremarkable. The right common carotid artery is unremarkable. There is calcified plaque at the right carotid bifurcation and proximal right internal carotid artery causing severe focal stenosis measuring up to 87%. The segment of stenosis measures approximately 2.5 cm in length The left common carotid is unremarkable. There is a calcified plaque within the proximal left internal carotid artery causing stenosis measuring up to 70%. The cervical left ICA is tortuous with a focal 90 degree turn noted proximally with the apex centered at the point of the maximal stenosis. The segment of the heavily calcified plaque within proximal left ICA measures up to 2.5 cm in length. The vertebral arteries are opacified and codominant. There is severe stenosis of the origin the right vertebral artery due to calcified plaque. No measurable left vertebral artery stenosis. No dissection flap or evidence of aneurysm within the neck. There is a mild calcified plaque within the proximal left subclavian artery. There is reversal the normal cervical lordosis. Moderate to severe disc space narrowing, endplate degenerative change, uncovertebral arthropathy and facet arthropathy. The thyroid gland is atrophic. There is a 0.8 cm hypodense nodule within the inferomedial left lobe of the thyroid gland and a small symmetric 0.8 cm hypodense nodule within the inferomedial right lobe of the thyroid gland. Septal thickening and groundglass opacities noted within the upper lungs. Procedure Note Rosendo Lou MD - 01/09/2025 [facility] [address] [facility] [place] [address] EXAMINATION:CT angiogram of the head and neck with and without [id number] INDICATION:Carotid artery stenosis TECHNIQUE: Axial CT images of the head were acquired without intravenouscontrast. Axial CT images of the head and neck were acquired followingadministration of 80 mL Isovue 370 contrast intravenously. Sagittal andcoronal reformats were constructed. Radiation dose reduction techniqueswere used. 3D MIPS were constructed. Carotid stenosis is reportedaccording to NASCET criteria. COMPARISON: Carotid ultrasound 06/03/2024 FINDINGS:Head CTA: No acute intracranial hemorrhage, mass effect ormidline shift or extra-axial fluid collection. There is mild cerebralatrophy with concordant province of the ventricles. Mild decreaseddensity noted within the supratentorial white matter. No acute osseous abnormality. Paranasal sinuses are clear. There is apartial opacification the left mastoid air cells. The orbits and globesare unremarkable. Bilateral ocular lens replacement noted. There is opacification of the intracranial internal carotid, vertebral andbasilar arteries. There is opacification of the anterior, middle andposterior cerebral arteries. There is moderate to severe stenosis theproximal V4 segment of the right vertebral artery. No other focal intracranial stenosis, large vessel occlusion oraneurysm. There is opacification of the superior sagittal sinus, internal cerebralveins, vein of Derek, straight sinus, transverse sinuses and sigmoidsinuses. No abnormal enhancement. Neck CTA: Calcified plaque noted throughout the aortic arch. The originsof great vessels are unremarkable. The innominate and proximal rightsubclavian artery are unremarkable. The right common carotid artery isunremarkable. There is calcified plaque at the right carotid bifurcationand proximal right internal carotid artery causing severe focal stenosismeasuring up to 87%. The segment of stenosis measures approximately 2.5cm in length The left common carotid is unremarkable. There is a calcified plaquewithin the proximal left internal carotid artery causing stenosismeasuring up to 70%. The cervical left ICA is tortuous with a focal 90degree turn noted proximally with the apex centered at the point of themaximal stenosis. The segment of the heavily calcified plaque withinproximal left ICA measures up to 2.5 cm in length. The vertebral arteries are opacified and codominant. There is severestenosis of the origin the right vertebral artery due to calcified plaque.No measurable left vertebral artery stenosis. No dissection flap orevidence of aneurysm within the neck. There is a mild calcified plaque within the proximal left subclavianartery. There is reversal the normal cervical lordosis. Moderate to severe discspace narrowing, endplate degenerative change, uncovertebral arthropathyand facet arthropathy. The thyroid gland is atrophic. There is a 0.8 cmhypodense nodule within the inferomedial left lobe of the thyroid glandand a small symmetric 0.8 cm hypodense nodule within the inferomedialright lobe of the thyroid gland. Septal thickening and groundglass opacities noted within the upper lungs. IMPRESSION: HEAD CTA: 1. Moderate to severe stenosis the proximal V4 segment of theintracranial right vertebral artery. 2. No large vessel occlusion or intracranial aneurysm. 3. Mild cerebral atrophy and chronic small ischemic changessupratentorial white matter NECK CTA: 1. 87% stenosis the proximal right internal coronary. 2. 70% stenosis the proximal left internal carotid artery. 3. Severe stenosis at the origin of the right vertebral artery. 4. No measurable left vertebral artery stenosis. 5. Nonspecific ground glass opacities and septal thickening within theupper lungs compatible with edema, atypical pneumonia or chronicchanges. MRI would be more sensitive for the detection of an acute infarct. Referred By: BEBETO ROSENTHAL Interpreted By: Rosendo Lou MD, 01/09/2025 1:40 PM Bebeto Rosenthal MD CT Final Result * (ABNORMAL) CREATININE W/GFR (01/01/2025 10:35 AM CDT) CREATININE WHOLE BLOOD 1.1 0.6 - 1.3 mg/dL 01/01/2025 10:38 AM CDT [facility] GFR ESTIMATE 66(L) >90 ml/min/1.7 3 m2 01/01/2025 10:38 AM CDT [facility] 01/01/2025 10:3 5 AM CDT us Bebeto Rosenthal MD POINT OF CARE TEST ORDERABLES Fi nal Result [facility] [id number] [place] [id number], from Last 3 Months Additional Health Concerns Active Problems Noted Date Diagnosed Date Autogenerated Problem 02/23/2025 Insurance MEDICARE [facility] Care Teams Principal Hardware Architect Relationship Specialty Start Date End Date Jamshid Finn MD [address] [place] [address] PCP - General FAMILY PRACTICE 01/01/25
--- OUTSIDE RECORDS SUMMARY | 2025-03-04 14:16 | XMS_ITS | Clinical Summary ---
Author [place] [facility] [facility] [place] [address] Address [address] [place] [address] Care Team Providers Care Apartment Rental Agent Name Role Phone Jamshid Fnin MD Primary Care Provider Allergies No known active allergies Active Problems Problem Noted Date Diagnosed Date Strain of lumbar region 05/27/2014 Encounters Date Type Department Care Team Description 12/23/2024 3:19 PM CDT - 12/23/2024 11:59 PM CDT Hospital Encounter [facility] Outpatient [id number] [place] [address] Other chest pain Discharge Disposition: Discharge to home or self care from Last 3 Months Immunizations Immunization Administration Dates Next Due Influenza, Trivalent, Preservative Free, Intramu scular 12/17/2013 Family History Medical History Relation Name Comments Hypertension Brother Family history of hypertension - (Added by TW Conv) Lung cancer Father Family history of lung cancer - (Added by TW Conv) Hypertension Mother Family history of hypertension - (Added by TW Conv) Relation Name Status Comments Brother Father Mother Social History Tobacco Use Types Packs/Day Years Used Date Smoking Tobacco: Former Sex and Gender Information Value Date Recorded Sex Assigned at Not on file Legal 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[employer] Gender Identity Not on file Sexual Orientation Not on file Last Filed Vital Signs Vital Sign Reading Time Taken Comments Blood Pressure 140/80 05/27/2014 10:59 AM CDT Pulse 94 05/27/2014 10:59 AM CDT Temperature - - Respiratory Rate - - Oxygen Saturation - - Inhaled Oxygen Concentration - - Weight 92.1 kg (203 lb 2.1 oz) 05/27/2014 10:59 AM CDT Height 175.3 cm (5' 9) 05/27/2014 10:59 AM CDT Body Mass Index 30 05/27/2014 10:59 AM CDT Plan of Treatment Health Maintenance Due Date Last Done Comments Depression Screening 1940 Fall Risk Assessment 1940 DTaP/Tdap/Td Vaccine (1 - Tdap) 1951 Hepatitis B Screening 1958 Pneumococcal vaccine 65+ (1 of 1 - PCV) 1990 Zoster Vaccine (1 of 2) 1990 Well Visit 65+ 2005 Covid-19 Vaccine (5 - 2024-2 6 season) 2024 08/11/2021, 02/17/2021, 06/08/2020, Additional history exists Influenza Vaccine (#1) 2024 , 11/25/2019, 12/24/2018, Additional history exists Procedures Procedure Name Priority Date/Time Associated Diagnosis Comments CT CHEST WO CONTRAST Schedule Routine, Read Routine (OP Routine) 12/23/2024 3:29 PM CDT Other chest pain from Last 3 Months Results * CT Chest WO Contrast (12/23/2024 3:29 PM CDT) Anatomical Region Laterality Modality Body N/A Computed Tomogra phy 12/26/2024 9:22 AM CDT Narrative 12/26/2024 9:29 AM CDT EXAM DESCRIPTION: CT CHEST WO CONTRAST REASON FOR STUDY: CHEST PAIN Pt complains of bilateral rib pain after falling twice in a month. No prior surgery to the heart, lungs, or chest. History of left rib fracture. Ex-smoker; quitting about 20 years ago. Pt smoked for approximately 30 years 1-2 PPD TECHNIQUE: CT scan of the chest performed without intravenous contrast using helical scanning technique. Reconstructed coronal and sagittal MPR images reviewed. All images stored on PACS. Automated exposure control was used as a dose optimization technique for this examination. COMPARISON: None FINDINGS: The sensitivity for detection of solid visceral lesions is diminished without the use of intravenous contrast. LUNGS: Mild emphysematous changes noted. There is a 7.5 mm ground-glass nodule in the right lower lobe (image 68).. Linear scarring or fibrosis is seen in the right middle lobe. There is mild central bronchiectasis. PLEURA: No effusion. No pneumothorax. MEDIASTINUM/DEVON: There are calcified mediastinal and right hilar lymph nodes. HEART: Heart size is normal with no pericardial effusion. CORONARY ARTERY CALCIFICATION: Present VASCULATURE: No thoracic aortic aneurysm. AXILLA: No adenopathy. CHEST WALL: No masses. No subcutaneous air. HARDWARE/LINES/TUBES: None. UPPER ABDOMEN: No significant abnormality. MUSCULOSKELETAL: There is degenerative change in the thoracic spine. There is age-indeterminate anterior wedging of T7 with a proximally 25% loss of anterior vertebral body height noted. OTHER: No other significant abnormality. IMPRESSION: 1. Age-indeterminate T7 fracture. Thoracic spine MRI is available to help establish the chronicity of this finding. 2. No acute rib fracture. 3. Ground-glass right lower lobe nodule. Follow-up per Fleischner society guidelines (see below). Recent guidelines by the Fleischner Society (Radiology 993619,2017) divides patient into low vs. high risk (for example, patients who smoke are considered high risk) and provides followup recommendations as follows: SOLITARY PURE GROUND-GLASS NODULE: Patients with a solitary pure ground-glass nodule less than 6 mm do not require follow-up. Larger than 6 mm solitary pure ground-glass nodule require CT in 6 to 12 months to confirm persistence, followed with CT every 2 years until 5 years. If grows or increasingly solid, consider resection. MULTIPLE PURE GROUND-GLASS NODULES: Patients with Multiple pure ground-glass nodules less than [address] in 3 to 6 months. If unchanged, consider CT in 2 and 4 years. Larger than 6 mm Multiple pure ground-glass nodules require CT at 3 to 6 months. The management based on most suspicious nodule(s). Note: These recommendations do not apply to lung cancer screening, patients with immunosuppression, or patients with known primary cancer. http://pubs.rsna.org/doi/pdf/10.1148/radiol.9420073954 THIS IS AN ELECTRONICALLY VERIFIED FINAL REPORT 12/26/2024 9:29 AM - Electronically signed by Lenard Casey M.D. BS T: Report ID: [id number] Reading Location: [place] [address] Procedure Note Lenard Casey MD - 12/26/2024 EXAM DESCRIPTION: CT CHEST WO CONTRAST REASON FOR STUDY: CHEST PAIN Pt complains of bilateral rib pain after falling twice in a month. Noprior surgery to the heart, lungs, or chest. History of left rib fracture. Ex-smoker; quitting about 20 years ago. Pt smoked for approximately 30years 1-2 PPD TECHNIQUE: CT scan of the chest performed without intravenous contrastusing helical scanning technique. Reconstructed coronal and sagittal MPR images reviewed. All images stored on PACS. Automated exposure control was usedas a dose optimization technique for this examination. COMPARISON: None FINDINGS: The sensitivity for detection of solid visceral lesions is diminished without the use of intravenous contrast. LUNGS: Mild emphysematous changes noted. There is a 7.5 mm ground-glass nodule in the right lower lobe (image 68).. Linear scarring or fibrosisis seen in the right middle lobe. There is mild central bronchiectasis. PLEURA: No effusion. No pneumothorax. MEDIASTINUM/DEVON: There are calcified mediastinal and right hilar lymph nodes. HEART: Heart size is normal with no pericardial effusion. CORONARY ARTERY CALCIFICATION: Present VASCULATURE: No thoracic aortic aneurysm. AXILLA: No adenopathy. CHEST WALL: No masses. No subcutaneous air. HARDWARE/LINES/TUBES: None. UPPER ABDOMEN: No significant abnormality. MUSCULOSKELETAL: There is degenerative change in the thoracic spine.There is age-indeterminate anterior wedging of T7 with a proximally 25% loss of anterior vertebral body height noted. OTHER: No other significant abnormality. IMPRESSION: 1. Age-indeterminate T7 fracture. Thoracic spine MRI is available to help establish the chronicity of this finding. 2. No acute rib fracture. 3. Ground-glass right lower lobe nodule. Follow-up per [facility] guidelines (see below). Recent guidelines by the Fleischner Society (Radiology 715160,2017)divides patient into low vs. high risk (for example, patients who smoke areconsidered high risk) and provides followup recommendations as follows: SOLITARY PURE GROUND-GLASS NODULE: Patients with a solitary pureground-glass nodule less than 6 mm do not require follow-up. Larger than 6 mm solitary pure ground-glass nodule require CT in 6 to 12 months to confirmpersistence, followed with CT every 2 years until 5 years. If grows or increasinglysolid, consider resection. MULTIPLE PURE GROUND-GLASS NODULES: Patients with Multiple pureground-glass nodules less than [address] in 3 to 6 months. If unchanged,consider CT in 2 and 4 years. Larger than 6 mm Multiple pure ground-glass nodulesrequire CT at 3 to 6 months. The management based on most suspicious nodule(s). Note: These recommendations do not apply to lung cancer screening,patients with immunosuppression, or patients with known primary cancer. http://pubs.rsna.org/doi/pdf/10.1148/radiol.5352724119 THIS IS AN ELECTRONICALLY VERIFIED FINAL REPORT 12/26/2024 9:29 AM - Electronically signed by Lenard Casey M.D. BS T: Report ID: [id number] Reading Location: [place] [address] PROCEDURES Final R esult from Last 3 Months Insurance MEDICARE [employer] MEDICARE FOR LIFE Care Teams Apartment Rental Agent Relationship Specialty Start Date End Date Jamshid Finn MD [address] [place] [address] PCP - General Family Medicine 08/04/21
== END 2025-03-04 12:27 | disposition home or self-care (01) ==
PROVIDERS: PCP Family Medicine; Visit Provider Physician Assistant
DX: R93.7 Abnormal findings on diagnostic imaging of other parts of musculoskeletal system (principal)
CPT/HCPCS: 72146